=== PATIENT | female | born 1965 | race Caucasian/White ===

== ENCOUNTER → 2021-08-16 | Outpatient (CLI) | payer MEDICARE ==
[~2021-08-16] MED LIST: CARB200T PO; CARV3.1210 PO; INSU100C4 SQ; INSU100I27 SQ; LEVE10007 PO; LEVE500T56 PO; LEVO25TA4 PO; LISI10TA16 PO; LISI2.5T12 PO; LORA2TAB PO; PANT40TA77 PO; PREG100C PO; PREG50CA91 PO; SIMV10TA15 PO; ZOLP12.56 PO; ZOLP5TAB PO
== END ==
LOC: SPEC 16:17
PROVIDERS: ATTEND Podiatrist Foot & Ankle Surgery
DX: L03.031 Cellulitis of right toe (principal)
CPT/HCPCS: 87075; 87186

== ENCOUNTER 2021-08-21 15:53 | Inpatient (IN) | payer MEDICARE ==
[~2021-08-21] VITALS: Ht 160 cm; Wt 118.4 kg
--- NOTE | 2021-08-21 17:56 | PHYS DOC ---
Past Medical History Past Medical History: Diabetes-Type II, Hypertension Additional Past Medical Histor: vegus nerve stimulator, epistaxis Past Surgical History: No Surgical History General Adult EDM: Chief Complaint: TOE PROBLEM HPI: HPI: Patient is a 56 year old female who presents with concern for possible amputation of a toe on her right foot after a call from her is technician. Patient is a poor historian. She states that she was seen last week by her is technician, who informed her she has an infection on her right toe that necessitates amputation. Patient was taking Bactrim, but states that she was supposed to start taking a new antibiotic here in the hospital. She is unsure if wound cultures were performed or not at her visit last week. Patient denies fever, chills, generalized weakness, foot pain. Review of Systems: Review of Systems: Constitutional: Denies fever, chills or generalized weakness Eyes: Denies change in visual acuity, visual field deficits or discharge HENT: Denies ear pain, nasal congestion or sore throat Respiratory: Denies cough or shortness of breath Cardiovascular: Denies chest pain, palpitations or edema GI: Denies abdominal pain, nausea, vomiting, bloody stools or diarrhea : Denies dysuria or hematuria Musculoskeletal: See HPI Integument: See HPI Neurologic: Denies headache, focal weakness or sensory changes Heart Score: C/O Chest Pain: No Current Medications: Current Medications Medications (Trade) Dose Ordered Sig/Emery Start Time Stop Time Status Last Admin Dose Admin Ringer's Solution 1,000 ml @ 1,000 mls/hr 1X ONCE 08/21/21 18:00 08/21/21 18:59 Vancomycin HCl (Vanco Per Pharmacy) 1 each 1X PRN 08/21/21 18:00 UNV Allergies: Allergies: Allergies Coded Allergies Type Severity Reaction Last Updated Verified escitalopram Allergy Intermediate 06/06/15 Yes etodolac Allergy Intermediate 06/06/15 Yes glyburide Allergy Intermediate 06/06/15 Yes metformin Allergy Intermediate 06/06/15 Yes sitagliptin Allergy Intermediate 06/06/15 Yes Physical Exam: PE: Constitutional: Obese, no acute distress, non-toxic appearance. HENT: Normocephalic, atraumatic, bilateral external ears normal, nose normal. Eyes: EOMI, conjunctiva normal, no discharge. Neck: Normal range of motion, no stridor. Skin: Cellulitis of the right lower extremity extending to the distal lower leg. Skin otherwise warm, dry. Extremities: No cyanosis, no clubbing, ROM intact. There is a an oozing wound noted to the right foot that is currently wrapped in gauze and in a postop shoe. Neurologic: Alert and oriented x4, steady and upright gait, no focal deficits noted. Current Patient Data: Labs: Laboratory Tests Test 08/21/21 18:27 White Blood Count 5.9 x10^3/uL (4.0-11.0) Red Blood Count 3.86 x10^6/uL (3.50-5.40) Hemoglobin 13.3 g/dL (12.0-15.5) Hematocrit 38.6 % (36.0-47.0) Mean Corpuscular Volume 100 fL (79-100) Mean Corpuscular Hemoglobin 34 pg (25-35) Mean Corpuscular Hemoglobin Concent 34 g/dL (31-37) Red Cell Distribution Width 12.9 % (11.5-14.5) Platelet Count 213 x10^3/uL (140-400) Neutrophils (%) (Auto) 66 % (31-73) Lymphocytes (%) (Auto) 23 % (24-48) Monocytes (%) (Auto) 7 % (0-9) Eosinophils (%) (Auto) 2 % (0-3) Basophils (%) (Auto) 1 % (0-3) Neutrophils # (Auto) 3.9 x10^3/uL (1.8-7.7) Lymphocytes # (Auto) 1.4 x10^3/uL (1.0-4.8) Monocytes # (Auto) 0.4 x10^3/uL (0.0-1.1) Eosinophils # (Auto) 0.1 x10^3/uL (0.0-0.7) Basophils # (Auto) 0.1 x10^3/uL (0.0-0.2) Sodium Level 133 mmol/L (136-145) Potassium Level 4.6 mmol/L (3.5-5.1) Chloride Level 97 mmol/L (98-107) Carbon Dioxide Level 27 mmol/L (21-32) Anion Gap 9 (6-14) Blood Urea Nitrogen 12 mg/dL (7-20) Creatinine 0.7 mg/dL (0.6-1.0) Estimated GFR (Cockcroft-Gault) 87.2 BUN/Creatinine Ratio 17 (6-20) Glucose Level 333 mg/dL (70-99) Calcium Level 8.7 mg/dL (8.5-10.1) Magnesium Level 2.1 mg/dL (1.8-2.4) Total Bilirubin 0.2 mg/dL (0.2-1.0) Aspartate Amino Transf (AST/SGOT) 30 U/L (15-37) Alanine Aminotransferase (ALT/SGPT) 30 U/L (14-59) Alkaline Phosphatase 93 U/L (46-116) Total Protein 8.4 g/dL (6.4-8.2) Albumin 2.8 g/dL (3.4-5.0) Albumin/Globulin Ratio 0.5 (1.0-1.7) SARS-CoV-2 Antigen (Rapid) Negative (NEGATIVE) Vital Signs: Vital Signs Date Time Temp Pulse Resp B/P (MAP) Pulse Ox O2 Delivery O2 Flow Rate FiO2 08/21/21 20:35 98.0 70 20 162/79 (106) 96 Room Air 98.0 08/21/21 18:05 94 18 131/66 (87) 96 Room Air 08/21/21 17:35 92 18 128/71 (90) 96 Room Air 08/21/21 17:04 96 18 144/67 (92) 96 Room Air 08/21/21 16:30 98.4 107 18 176/83 (114) 94 Room Air 98.4 Date Time Temp Pulse Resp B/P (MAP) Pulse Ox O2 Delivery O2 Flow Rate FiO2 08/21/21 16:30 98.4 107 18 176/83 (114) 94 Room Air 98.4 EKG: EKG: [] Course & Med Decision Making: Course & Med Decision Making Pertinent Labs and Imaging studies reviewed. (See chart for details) I placed a call to Viviana Ramirez.P.M., who advised the patient to present to the ER. She states that about 1 month ago, patient presented with cellulitis to the right foot. She was instructed to follow-up in 1 week after taking Bactrim, but missed her appointment. Patient return to the clinic last week and was found to have osteomyelitis to the distal phalanx on x-ray. Patient was given a new antibiotic and instructed to have labs drawn, neither of which the patient follow through with. Wound culture came back for MSSA and E. coli. Dr. Bailey called the patient today and advised that she present to the emergency department secondary to noncompliance and poor follow-up. Dr. Bailey does not wish the patient to have any further compromise of the foot. Dr. Bailey requests blood cultures and admission so that she can further evaluate and surgically treat the infection on an inpatient basis, as the patient has failed outpatient management. Dr. Gasca gladlcoy accepts patient for admission. Directly after COVID swab, which is necessary prior to being in the OR here [facility], patient began to have a nosebleed. Direct pressure and Afrin were applied by NICK Martins. Patient was hemodynamically stable at time of transfer to the floor. Missy Disclaimer: Dragvaleri Disclaimer: This electronic medical record was generated, in whole or in part, using a voice recognition dictation system. Departure Departure Impression: Primary Impression: Osteomyelitis of right foot Qualified Codes: M86.271 - Subacute osteomyelitis, right ankle and foot Additional Impression: Anterior epistaxis Disposition: ADMITTED INPATIENT Admitting Physician: MARKELL Ngo) Condition: GUARDED Referrals: NO PCP (PCP) KESHA HILL Aug 21, 2021 17:56
[2021-08-21] MEDS ORDERED: VANCOMYCIN PER PHARMACY MC PRN (18:00)
[2021-08-21] MEDS ORDERED: IV RINGERS,LACTATED 1000ML 1,000 ML IV ONE (18:00)
[2021-08-21] MEDS ORDERED: VANCOMYCIN 2 GM in IV NORMAL SALINE 500ML BAG 500 ML IV ONE (18:30)
[2021-08-21] MEDS ORDERED: OXYMETAZOLINE 0.05% NASAL SPRAY 30ML BOTTLE. NS ONE (18:45)
--- NOTE | 2021-08-21 19:03 | PDOC1 ---
History and Physical Date of Admission Date of Admission DATE: 08/21/21 TIME: 19:03 Identification/Chief Complaint Chief Complaint Right foot pain, infection Source Source: Patient History of Present Illness History of Present Illness Ms Truong is a 56yo female with PMHx HTN, HLD, DM2, seizure disorder who comes to ED accompanied by her significant other c/o worsening pain, swelling of her right 3rd toe. She was sent to ED by her sports coordinator due to outpatient radiographic imaging concerning for osteomyelitis of the right third toe distal phalanx and per ED staff it was communicated a positive MSSA wound culture as well. Patient seen bedside notes she has been getting nail care through podiatry and has been fighting an infection for over a month now. Failed outpatient antibiotics. She notes a history of diabetes on Levemir 70 units nightly and NovoLog 65 units du ring the day and has a seizure disorder, reports she sees Dr. Parker and is on Keppra zonisamide and carbamazepine. Her current concerns are some epistaxis after COVID-19 nasal swab and local pressure and oxymetazoline nasal spray have been applied with improvement bedside. Her other concerns are lorazepam Ambien 12.5 mg and cyclobenzaprine as well as amitriptyline be continued while she is hospitalized due to concerns for insomnia and history of headaches as well. No labs available for review. Cultures pending. Past Medical History Cardiovascular: Hyperlipidemia CENTRAL NERVOUS SYSTEM: Migraine, Periperal neuropathy, Seizure Endocrine: Diabetes Past Surgical History Past Surgical History: Other (vagal nerve stimulator) Family History Family History: Diabetes, High Cholestrol Social History Smoke: No ALCOHOL: none Drugs: None Current Medications Current Medications Current Medications Ringer's Solution 1,000 ml @ 1,000 mls/hr 1X ONCE IV ; Start 08/21/21 at 18:00; Stop 08/21/21 at 18:59; Status DC Vancomycin HCl (Vanco Per Pharmacy) 1 each 1X PRN MC SEE COMMENTS; Start 08/21/21 at 18:00 Vancomycin HCl 2 gm/Sodium Chloride 500 ml @ 250 mls/hr 1X ONCE IV ; Start 08/21/21 at 18:30; Stop 08/21/21 at 20:29 Oxymetazoline HCl (Afrin) 2 spray 1X ONCE NS ; Start 08/21/21 at 18:45; Stop 08/21/21 at 18:46; Status DC Active Scripts Active Reported Simvastatin 10 Mg Tablet 10 Mg PO HS Lisinopril 10 Mg Tablet 10 Mg PO DAILY Levothyroxine Sodium 25 Mcg Tablet 25 Mcg PO DAILYAC Pantoprazole Sodium 40 Mg Tablet.dr 40 Mg PO BID Tegretol (Carbamazepine) 200 Mg Tablet 400 Mg PO BID 30 Days Lorazepam 2 Mg Tablet 2 Mg PO TID Levemir Flextouch (Insulin Detemir) 100 Unit/1 Ml Insuln.pen 1 Unit SQ Levetiracetam 1,000 Mg Tablet 1,000 Mg PO BID Lyrica (Pregabalin) 100 Mg Capsule 1 Cap PO BID Zolpidem Tartrate Er (Zolpidem Tartrate) 12.5 Mg Tab.mphase 12.5 Mg PO PRN QHS PRN Novolog (Insulin Aspart) 100 Unit/1 Ml Cartridge 100 Unit SQ Allergies Allergies: Coded Allergies: escitalopram (Verified Allergy, Intermediate, 06/06/15) etodolac (Verified Allergy, Intermediate, 06/06/15) glyburide (Verified Allergy, Intermediate, 06/06/15) metformin (Verified Allergy, Intermediate, 06/06/15) sitagliptin (Verified Allergy, Intermediate, 06/06/15) ROS General: YES: Fatigue, Malaise; No: Chills, Night Sweats, Appetite, Other PSYCHOLOGICAL ROS: YES: Anxiety, Memory difficulties, Sleep disturbances; No: Behavioral Disorder, Concentration difficultie, Decreased libido, Depression, Disorientation, Hallucinations, Hostility, Irritablity, Mood Swings, Obsessive thoughts, Physical abuse, Sexual abuse, Suicidal ideation, Other Eyes: No Blurry vision, No Decreased vision, No Double vision, No Dry eyes, No Excessive tearing, No Eye Pain, No Itchy Eyes, No Loss of vision, No Photophobia, No Scotomata, No Uses contacts, No Uses glasses, No Other HEENT: YES: Epistaxis; No: Heacaches, Visual Changes, Hearing change, Nasal congestion, Nasal discharge, Oral lesions, Sinus pain, Sore Throat, Sneezing, Snoring, Tinnitus, Vertigo, Vocal changes, Other ALLERGY AND IMMUNOLOGY: No: Hives, Insect Bite Sensitivity, Itchy/Watery Eyes, Nasal Congestion, Post Nasal Drip, Seasonal Allergies, Other Hematological and Lymphatic: No: Bleeding Problems, Blood Clots, Blood Transfusions, Brusing, Night Sweats, Pallor, Swollen Lymph Nodes, Other ENDOCRINE: No: Breast Changes, Galactorrhea, Hair Pattern Changes, Hot Flashes, Malaise/lethargy, Mood Swings, Palpitations, Polydipsia/polyuria, Skin Changes, Temperature Intolerance, Unexpected Weight Changes, Other Breast: No New/Changing Breast Lumps, No Nipple changes, No Nipple discharge, No Other Respiratory: No: Cough, Hemoptysis, Orthopnea, Pleuritic Pain, Shortness of breath, SOB with excertion, Sputum Changes, Stridor, Tachypnea, Wheezing, Other Cardiovascular: No Chest Pain, No Palpitations, No Orthopnea, No Paroxysmal Noc. Dyspnea, No Edema, No Lt Headedness, No Other Gastrointestinal: No Nausea, No Vomiting, No Abdominal Pain, No Diarrhea, No Constipation, No Melena, No Hematochezia, No Other Genitourinary: No Dysuria, No Frequency, No Incontinence, No Hematuria, No Retention, No Discharge, No Urgency, No Pain, No Flank Pain, No Other, No , No , No , No , No , No , No Musculoskeletal: Yes Gait Disturbance, Yes Joint Pain; No Joint Stiffness, No Joint Swelling, No Muscle Pain, No Muscular Weakness, No Pain In:, No Swelling In:, No Other Neurological: No Behavorial Changes, No Bowel/Bladder ControlChng, No Confusion, No Dizziness, No Gait Disturbance, No Headaches, No Impaired Coord/balance, No Memory Loss, No Numbness/Tingling, No Seizures, No Speech Problems, No Tremors, No Visual Changes, No Weakness, No Other Skin: Yes Rash, Yes Skin Lesion Changes Physical Exam General: Alert, Oriented X3, Cooperative, mild distress HEENT: Other (Epistaxis, right > left nares, resolved in ED) Lungs: Clear to auscultation, Normal air movement Heart: S1S2, RRR, no thrills, no rubs, no gallops, no murmurs Abdomen: Normal bowel sounds, Soft, No tenderness, No hepatosplenomegaly, No masses Extremities: No clubbing, No cyanosis, No edema, Normal pulses, Other (Right middle toe swollen) Skin: No rashes, No breakdown, No significant lesion, Other (Right third toe red discolored with eschar on dorsum) Neuro: Normal speech, Strength at 5/5 X4 ext, Normal tone, Cranial nerves 3-12 NL, Reflexes 2+ Psych/Mental Status: Mental status NL, Mood NL Vitals Vitals Vital Signs Date Time Temp Pulse Resp B/P (MAP) Pulse Ox O2 Delivery O2 Flow Rate FiO2 08/21/21 16:30 98.4 107 18 176/83 (114) 94 Room Air 98.4 VTE Prophylaxis Ordered VTE Prophylaxis Devices: No VTE Pharmacological Prophylaxi: Yes Assessment/Plan Assessment/Plan Right 3rd toe cellulitis - will empirically cover with vancomycin, rocephin, consult ID given reported history of osteomyelitis Right 3rd toe osteomyelitis - per report. Will assess arterial vascular supply to ascertain adequate healing potential HTN - cont home meds HLD - cont simvastatin DM2 - intolerant of oral diabetic meds. Levemir 70 units nightly and NovoLog 65 units during the day Seizure disorder - she sees Dr. Parker and is on Keppra zonisamide and carbamazepine. Notes last seizure was 3 weeks ago Epistaxis - from nasal swab, local oxymetolazine and pressure resolved in ED Anxiety - on prn lorazepam, counseled on judicious use given history of seizure disorder Insomnia - on Ambien 12.5 mg, counseled on use and neurology follow up given seizure disorder history Headaches - she mentions migraine type, on cyclobenzaprine as well as amitriptyline FEN - ADA diet PPX - heparin FULL CODE Dispo - inpatient Justifications for Admission Other Justification ANDERSON SAMPSON MD Aug 21, 2021 19:03
[2021-08-21 19:15] LABS: BASO # 0.1 x10^3/uL (0.0-0.2); BASO % 1 % (0-3); EOS # 0.1 x10^3/uL (0.0-0.7); EOS % 2 % (0-3); HEMATOCRIT 38.6 % (36.0-47.0); HEMOGLOBIN 13.3 g/dL (12.0-15.5); LYMPH # 1.4 x10^3/uL (1.0-4.8); LYMPH % 23 % (24-48); MEAN CORPUSCULAR HEMOGLOBIN 34 pg (25-35); MEAN CORPUSCULAR HGB CONC 34 g/dL (31-37); MEAN CORPUSCULAR VOLUME 100 fL (79-100); MONO # 0.4 x10^3/uL (0.0-1.1); MONO % 7 % (0-9); NEUT # 3.9 x10^3/uL (1.8-7.7); NEUT % 66 % (31-73); PLATELET COUNT 213 x10^3/uL (140-400); RED BLOOD COUNT 3.86 x10^6/uL (3.50-5.40); RED CELL DISTRIBUTION WIDTH 12.9 % (11.5-14.5); WHITE BLOOD COUNT 5.9 x10^3/uL (4.0-11.0)
[2021-08-21 19:19] LABS: CALCIUM 8.7 mg/dL (8.5-10.1); CREATININE 0.7 mg/dL (0.6-1.0); GFR 87.2; POTASSIUM 4.6 mmol/L (3.5-5.1)
[2021-08-21 19:25] LABS: ALBUMIN 2.8 g/dL (3.4-5.0); ALBUMIN/GLOBULIN RATIO 0.5 (1.0-1.7); MAGNESIUM 2.1 mg/dL (1.8-2.4); TOTAL BILIRUBIN 0.2 mg/dL (0.2-1.0); TOTAL PROTEIN 8.4 g/dL (6.4-8.2)
[2021-08-21] MEDS ORDERED: fentaNYL PF VIAL 100 MCG/2 ML VIAL IVP PRN (19:30)
[2021-08-21] MEDS ORDERED: ACETAMINOPHEN 325 MG TABLET. PO PRN (19:30)
[2021-08-21] MEDS ORDERED: IV DEXTROSE 5% 250 ML BAG. IV PRN (19:30)
[2021-08-21] MEDS ORDERED: ONDANSETRON PF 4 MG/2 ML VIAL. IVP PRN (19:30)
[2021-08-21] MEDS ORDERED: DEXTROSE 50% 25 GM / 50ML DISP.SYRIN. IV PRN (19:30)
--- NOTE | 2021-08-21 20:30 | NUR ---
Admit to 422 from ED. Picture of right 3rd toe in chart.
[2021-08-21 20:35] VITALS: BP 162/79
[2021-08-21] MEDS: levETIRAcetam 500 MG TABLET PO SCH (21:30)
[2021-08-21] MEDS: carBAMazepine 200 MG TABLET PO SCH (21:30)
[2021-08-21] MEDS: SIMVASTATIN 10 MG TABLET PO SCH (21:30)
[2021-08-21] MEDS: INSULIN LISPRO 300 UNITS/3 ML VIAL. SQ SCH (22:30)
[2021-08-21] MEDS: INSULIN GLARGINE SYRINGE. SQ SCH (22:31)
[2021-08-21 23:00] VITALS: BP 140/82
--- NOTE | 2021-08-21 23:18 | NUR ---
Pharmacy Vancomycin Dosing Note S:Consulted to monitor and dose vancomycin started 08/21/21. O:ANGELA FORBES is a 56 year old F with Osteomyelitis . Height: 5 feet, 3 inches Weight: 118.5 kg [place] Body Weight: 52.40 Adjusted Body Weight: 78.84 Dosing Weight: Actual Other Antibiotics: LABS: Last BUN: 12 Last Creatinine: 0.7 Creatinine Clearance: 114 mL/min Last WBC: 5.9 Last Procalcitonin: Tmax (past 24 hours): Microbiology: I/O: Drug Levels: Last level: on at Last dose given 08/21/21 at 2100 Vancomycin Dosing: Loading Dose: 2000 mg x1 Dosing Weight: Actual Target Trough: 15-20 A: Based on: WT AND CRCL, MAX INITIAL DOSE P: 1. Begin Vancomycin 1500 mg IV q8h 2. Follow up Trough level on 08/22/21 at 2030 3. Pharmacy will continue to monitor, follow and adjust therapy as needed. AVILA STAFFORD RPH, [id number] Signed: 08/21/21 at 231 by AVILA STAFFORD RPH PHA
[2021-08-22 03:27] VITALS: BP 127/70
[2021-08-22] MEDS ORDERED: VANCOMYCIN 1.5 GM in IV NORMAL SALINE 500ML BAG 500 ML IV SCH (05:00)
--- NOTE | 2021-08-22 05:36 | RAD ---
Study: US DPLX ARTR EXTREM LOWER BILAT Indication: Osteomyelitis. Toe infection. Comparison: None. Technique/Findings: Duplex sonographic assessment of the bilateral lower extremity arteries with color flow and pulsed wa ve Doppler along with spectral waveform analysis. Combination of triphasic and biphasic waveforms throughout both lower extremities. No evidence for a flow-limiting stenosis based on peak systolic velocity values. Mildly increased peak systolic velocit y within the proximal left superficial femoral artery of 151 cm/s with a drop to 98 cm/s at the mid S FA without dampened waveforms distally. Right lower extremity: LINE MOVER: 108 cm/s DFA: 68 cm/s Proximal SFA: 105 cm/s Mid SFA: 106 cm/s Distal SFA: 106 cm/s Popliteal artery: 82 cm/s [employer] proximal: 95 cm/s PT distal: 57 cm/s Peroneal artery: 57 cm/s RADHA: 100 cm/s DPA: 63 cm/s Left lower extremity: LINE MOVER: 148 cm/s DFA: 68 cm/s Proximal SFA: 151 cm/s Mid SFA: 98 cm/s Distal SFA: 113 cm/s Popliteal artery: 62 cm/s [employer] proximal: 96 cm/s PT distal: 59 cm/s Peroneal artery: 58 cm/s RADHA: 49 cm/s DPA: 120 cm/s Impression: Peripheral vascular disease without evidence for a flow-limiting stenosis throughout either lower ext remity. Suspected mild stenosis at the proximal left superficial femoral artery. Eventual MARYELLEN could b e performed to better quantify the extent of PAD. Electronically signed by: JIMMY DUNN MD (08/22/2021 5:33 AM) [facility]
--- NOTE | 2021-08-22 05:57 | NUR ---
Patient refuses staff to check blood sugar, uses her own One Touch meter.
[2021-08-22 07:00] VITALS: BP_SYST 119; BP_SYST 126; BP_SYST 191; BP_DIAS 68; BP_DIAS 76
--- NOTE | 2021-08-22 07:39 | PDOC ---
[employer] PROGRESS NOTE Date of Service DOS: DATE: 08/22/21 TIME: 07:34 Chief Complaint Chief Complaint Right 3rd toe cellulitis - will empirically cover with vancomycin, rocephin, consult ID given reported history of osteomyelitis Right 3rd toe osteomyelitis - per report. Will assess arterial vascular supply to ascertain adequate healing potential HTN - cont home meds HLD - cont simvastatin DM2 - intolerant of oral diabetic meds. Levemir 70 units nightly and NovoLog 65 units during the day Seizure disorder - she sees Dr. Parker and is on Keppra zonisamide and carbamazepine. Notes last seizure was 3 weeks ago Epistaxis - from nasal swab, local oxymetolazine and pressure resolved in ED Anxiety - on prn lorazepam, counseled on judicious use given history of seizure disorder Insomnia - on Ambien 12.5 mg, counseled on use and neurology follow up given seizure disorder history Headaches - she mentions migraine type, on cyclobenzaprine as well as amitriptyline FEN - ADA diet PPX - heparin FULL CODE Dispo - inpatient History of Present Illness History of Present Illness Ms Truong is a 56yo female with PMHx HTN, HLD, DM2, seizure disorder who comes to ED accompanied by her significant other c/o worsening pain, swelling of her right 3rd toe. She was sent to ED by her vacuum drum drier operator due to outpatient radiographic imaging concerning for osteomyelitis of the right third toe distal phalanx and per ED staff it was communicated a positive MSSA wound culture as well. Patient seen bedside notes she has been getting nail care through podiatry and has been fighting an infection for over a month now. Failed outpatient antibiotics. She notes a history of diabetes on Levemir 70 units nightly and NovoLog 65 units during the day and has a seizure disorder, reports she sees Dr. Parker and is on Keppra zonisamide and carbamazepine. Her current concerns are some epistaxis after COVID-19 nasal swab and local pressure and oxymetazoline nasal spray have been applied with improvement bedside. Her other concerns are lorazepam Ambien 12.5 mg and cyclobenzaprine as well as amitriptyline be continued while she is hospitalized due to concerns for insomnia and history of headaches as well. 08/22: Labs with NA 133, glucose in upper 200s. Took some time to have her consent for glucose tested. Having some pain currently. Still aching. Arterial Doppler with no acute occlusive disease. Vitals/I&O Vitals/I&O: Vital Signs Date Time Temp Pulse Resp B/P (MAP) Pulse Ox O2 Delivery O2 Flow Rate FiO2 08/22/21 03:27 97.1 90 20 127/70 (89) 97 Room Air 97.1 I & O 08/21/21 08/21/21 08/22/21 15:00 23:00 07:00 Intake Total 600 ml Output Total 2 ml Balance -2 ml 600 ml Physical Exam General: Alert, Oriented X3, Cooperative, mild distress Abdomen: Normal bowel sounds, Soft, No tenderness, No hepatosplenomegaly, No masses Extremities: No clubbing, No cyanosis, No edema, Normal pulses, Other (Right m iddle toe swollen) Skin: No rashes, No breakdown, No significant lesion, Other (Right third toe red discolored with eschar on dorsum) Labs Labs: Laboratory Tests Test 08/21/21 18:27 White Blood Count 5.9 x10^3/uL (4.0-11.0) Red Blood Count 3.86 x10^6/uL (3.50-5.40) Hemoglobin 13.3 g/dL (12.0-15.5) Hematocrit 38.6 % (36.0-47.0) Mean Corpuscular Volume 100 fL (79-100) Mean Corpuscular Hemoglobin 34 pg (25-35) Mean Corpuscular Hemoglobin Concent 34 g/dL (31-37) Red Cell Distribution Width 12.9 % (11.5-14.5) Platelet Count 213 x10^3/uL (140-400) Neutrophils (%) (Auto) 66 % (31-73) Lymphocytes (%) (Auto) 23 % (24-48) Monocytes (%) (Auto) 7 % (0-9) Eosinophils (%) (Auto) 2 % (0-3) Basophils (%) (Auto) 1 % (0-3) Neutrophils # (Auto) 3.9 x10^3/uL (1.8-7.7) Lymphocytes # (Auto) 1.4 x10^3/uL (1.0-4.8) Monocytes # (Auto) 0.4 x10^3/uL (0.0-1.1) Eosinophils # (Auto) 0.1 x10^3/uL (0.0-0.7) Basophils # (Auto) 0.1 x10^3/uL (0.0-0.2) Sodium Level 133 mmol/L (136-145) Potassium Level 4.6 mmol/L (3.5-5.1) Chloride Level 97 mmol/L (98-107) Carbon Dioxide Level 27 mmol/L (21-32) Anion Gap 9 (6-14) Blood Urea Nitrogen 12 mg/dL (7-20) Creatinine 0.7 mg/dL (0.6-1.0) Estimated GFR (Cockcroft-Gault) 87.2 BUN/Creatinine Ratio 17 (6-20) Glucose Level 333 mg/dL (70-99) Calcium Level 8.7 mg/dL (8.5-10.1) Magnesium Level 2.1 mg/dL (1.8-2.4) Total Bilirubin 0.2 mg/dL (0.2-1.0) Aspartate Amino Transf (AST/SGOT) 30 U/L (15-37) Alanine Aminotransferase (ALT/SGPT) 30 U/L (14-59) Alkaline Phosphatase 93 U/L (46-116) Total Protein 8.4 g/dL (6.4-8.2) Albumin 2.8 g/dL (3.4-5.0) Albumin/Globulin Ratio 0.5 (1.0-1.7) SARS-CoV-2 Antigen (Rapid) Negative (NEGATIVE) Assessment and Plan Assessmemt and Plan Problems Medical Problems: (1) Anterior epistaxis Status: Acute (2) Osteomyelitis of right foot Status: Acute Comment Review of Relevant I have reviewed the following items sree (where applicable) has been applied. Medications: Current Medications Medications (Trade) Dose Ordered Sig/Emery Route PRN Reason Start Time Stop Time Status Last Admin Dose Admin Vancomycin HCl (Vanco Per Pharmacy) 1 each 1X PRN MC SEE COMMENTS 08/21/21 18:00 08/21/21 23:18 Vancomycin HCl 2 gm/Sodium Chloride 500 ml @ 250 mls/hr 1X ONCE IV 08/21/21 18:30 08/21/21 20:29 DC 08/21/21 21:04 Oxymetazoline HCl (Afrin) 2 spray 1X ONCE NS 08/21/21 18:45 08/21/21 18:46 DC 08/21/21 19:04 Insulin Glargine (Lantus Syringe) 70 unit QHS SQ 08/21/21 21:00 08/21/21 22:31 Insulin Human Lispro (HumaLOG) 0-9 UNITS TIDACHC SQ 08/21/21 21:00 08/21/21 22:30 Vancomycin HCl 1.5 gm/Sodium Chloride 500 ml @ 250 mls/hr Q8H IV 08/22/21 05:00 08/22/21 06:07 Justifications for Admission Other Justification ANDERSON SAMPSON MD Aug 22, 2021 07:39
[2021-08-22 08:00] LABS: BASO # 0.1 x10^3/uL (0.0-0.2); BASO % 1 % (0-3); EOS # 0.2 x10^3/uL (0.0-0.7); EOS % 3 % (0-3); HEMATOCRIT 36.3 % (36.0-47.0); HEMOGLOBIN 12.4 g/dL (12.0-15.5); LYMPH # 1.8 x10^3/uL (1.0-4.8); LYMPH % 31 % (24-48); MEAN CORPUSCULAR HEMOGLOBIN 34 pg (25-35); MEAN CORPUSCULAR HGB CONC 34 g/dL (31-37); MEAN CORPUSCULAR VOLUME 100 fL (79-100); MONO # 0.4 x10^3/uL (0.0-1.1); MONO % 7 % (0-9); NEUT # 3.3 x10^3/uL (1.8-7.7); NEUT % 58 % (31-73); PLATELET COUNT 198 x10^3/uL (140-400); RED BLOOD COUNT 3.62 x10^6/uL (3.50-5.40); RED CELL DISTRIBUTION WIDTH 13.1 % (11.5-14.5); WHITE BLOOD COUNT 5.8 x10^3/uL (4.0-11.0)
[2021-08-22 08:32] LABS: ALBUMIN 2.4 g/dL (3.4-5.0); ALBUMIN/GLOBULIN RATIO 0.5 (1.0-1.7); CREATININE 0.7 mg/dL (0.6-1.0); GFR 87.2; POTASSIUM 4.1 mmol/L (3.5-5.1); TOTAL BILIRUBIN 0.2 mg/dL (0.2-1.0); TOTAL PROTEIN 7.3 g/dL (6.4-8.2)
--- NOTE | 2021-08-22 09:00 | PDOC2 ---
CONSULT Date of Consult Date of Consult DATE: 08/22/21 TIME: 08:48 Reason for Consult Reason for Consult: DM foot infection Referring Physician Referring Physician: Lorraine Identification/Chief Complaint Chief Complaint infected right 3rd toe Source Source: Patient History of Present Illness Reason for Visit: 56 year old female with past medical history of DM and peripheral neuropathy was seen in my office 1 month ago for ulceration to distal tip of 3rd toe. She missed her follow up appointment 1 week later due to migraine headache and returned 3.5 weeks later on 08/16 with noted cellulitis and xray changes significant for osteomyelitis distal phalanx. Ordered labs, MRI, and arterial doppler outpatient however patient failed to get these drawn and performed. She was contacted for follow up on labs and had a non working number and set her phones to do not disturb. She then responded via email and called us yesterday to let us know of continued cellulitis. Recommended she come to the emergency room for admission for IV antibiotics. Wound culture from 08/16 shows MSSA and Ecoli. She notes nausea, but denies vomitting, fever, chills Past Medical History Cardiovascular: Hyperlipidemia CENTRAL NERVOUS SYSTEM: Migraine, Periperal neuropathy, Seizure Endocrine: Diabetes Past Surgical History Past Surgical History: Other (vagal nerve stimulator) Family History Family History: Diabetes, High Cholestrol Social History No ALCOHOL: none Drugs: None Current Problem List Problem List Problems Medical Problems: (1) Anterior epistaxis Status: Acute (2) Osteomyelitis of right foot Status: Acute Current Medications Current Medications Current Medications Ringer's Solution 1,000 ml @ 1,000 mls/hr 1X ONCE IV ; Start 08/21/21 at 18:00; Stop 08/21/21 at 18:59; Status DC Vancomycin HCl (Vanco Per Pharmacy) 1 each 1X PRN MC SEE COMMENTS Last administered on 08/21/21at 23:18; Start 08/21/21 at 18:00 Vancomycin HCl 2 gm/Sodium Chloride 500 ml @ 250 mls/hr 1X ONCE IV Last administered on 08/21/21at 21:04; Start 08/21/21 at 18:30; Stop 08/21/21 at 20:2 9; Status DC Oxymetazoline HCl (Afrin) 2 spray 1X ONCE NS Last administered on 08/21/21at 19:04; Start 08/21/21 at 18:45; Stop 08/21/21 at 18:46; Status DC Ondansetron HCl (Zofran) 4 mg PRN Q4HRS PRN IVP NAUSEA/VOMITING; Start 08/21/21 at 19:30 Fentanyl Citrate (Fentanyl 2ml Vial) 25 mcg PRN Q3HRS PRN IVP SEVERE PAIN 7-10; Start 08/21/21 at 19:30 Acetaminophen (Tylenol) 650 mg PRN Q6HRS PRN PO MILD PAIN / TEMP > 100.3'F; Start 08/21/21 at 19:30 Acetaminophen/ Hydrocodone Bitart (Lortab 5/325) 1 tab PRN Q6HRS PRN PO PAIN; Start 08/21/21 at 19:30 Insulin Glargine (Lantus Syringe) 70 unit QHS SQ Last administered on 08/21/21at 22:31; Start 08/21/21 at 21:00 Insulin Human Lispro (HumaLOG) 0-9 UNITS TIDACHC SQ Last administered on 08/21/21at 22:30; Start 08/21/21 at 21:00 Dextrose (Dextrose 50%-Water Syringe) 12.5 gm PRN Q15MIN PRN IV SEE COMMENTS; Start 08/21/21 at 19:30 Dextrose (Iv Dextrose 5%) 250 ml PRN Q15MIN PRN IV SEE COMMENTS; Start 08/21/21 at 19:30 Carbamazepine (TEGretol) 400 mg BID PO ; Start 08/21/21 at 21:30 Pantoprazole Sodium (Protonix) 40 mg BIDAC PO ; Start 08/22/21 at 07:30 Simvastatin (Zocor) 10 mg HS PO ; Start 08/21/21 at 21:30 Levetiracetam (Keppra) 1,000 mg BID PO ; Start 08/21/21 at 21:30 Lorazepam (Ativan) 2 mg PRN TID PRN PO ANXIETY / AGITATION; Start 08/21/21 at 21:15 Zolpidem Tartrate (Ambien) 5 mg PRN QHS PRN PO INSOMNIA, MAY REPEAT X1; Start 08/21/21 at 21:15 Vancomycin HCl 1.5 gm/Sodium Chloride 500 ml @ 250 mls/hr Q8H IV Last administered on 08/22/21at 06:07; Start 08/22/21 at 05:00 Vancomycin HCl (Vancomycin Trough Level) 1 each 1X ONCE MC ; Start 08/22/21 at 20:30; Stop 08/22/21 at 20:31 Active Scripts Active Reported Simvastatin 10 Mg Tablet 10 Mg PO HS Lisinopril 10 Mg Tablet 10 Mg PO DAILY Levothyroxine Sodium 25 Mcg Tablet 25 Mcg PO DAILYAC Pantoprazole Sodium 40 Mg Tablet.dr 40 Mg PO BID Tegretol (Carbamazepine) 200 Mg Tablet 400 Mg PO BID 30 Days Lorazepam 2 Mg Tablet 2 Mg PO TID Levemir Flextouch (Insulin Detemir) 100 Unit/1 Ml Insuln.pen 1 Unit SQ Levetiracetam 1,000 Mg Tablet 1,000 Mg PO BID Lyrica (Pregabalin) 100 Mg Capsule 1 Cap PO BID Zolpidem Tartrate Er (Zolpidem Tartrate) 12.5 Mg Tab.mphase 12.5 Mg PO PRN QHS PRN Novolog (Insulin Aspart) 100 Unit/1 Ml Cartridge 100 Unit SQ Allergies Allergies: Coded Allergies: escitalopram (Verified Allergy, Intermediate, 06/06/15) etodolac (Verified Allergy, Intermediate, 06/06/15) glyburide (Verified Allergy, Intermediate, 06/06/15) metformin (Verified Allergy, Intermediate, 06/06/15) sitagliptin (Verified Allergy, Intermediate, 06/06/15) ROS General: YES: Malaise PSYCHOLOGICAL ROS: No: Anxiety, Behavioral Disorder, Concentration difficultie, Decreased libido, Depression, Disorientation, Hallucinations, Hostility, Irritablity, Memory difficulties, Mood Swings, Obsessive thoughts, Physical abuse, Sexual abuse, Sleep disturbances, Suicidal ideation, Other Eyes: No Blurry vision, No Decreased vision, No Double vision, No Dry eyes, No Excessive tearing, No Eye Pain, No Itchy Eyes, No Loss of vision, No Photophobia, No Scotomata, No Uses contacts, No Uses glasses, No Other HEENT: No: Heacaches, Visual Changes, Hearing change, Nasal congestion, Nasal discharge, Oral lesions, Sinus pain, Sore Throat, Epistaxis, Sneezing, Snoring, Tinnitus, Vertigo, Vocal changes, Other ALLERGY AND IMMUNOLOGY: No: Hives, Insect Bite Sensitivity, Itchy/Watery Eyes, Nasal Congestion, Post Nasal Drip, Seasonal Allergies, Other Hematological and Lymphatic: No: Bleeding Problems, Blood Clots, Blood Transfusions, Brusing, Night Sweats, Pallor, Swollen Lymph Nodes, Other ENDOCRINE: No: Breast Changes, Galactorrhea, Hair Pattern Changes, Hot Flashes, Malaise/lethargy, Mood Swings, Palpitations, Polydipsia/polyuria, Skin Changes, Temperature Intolerance, Unexpected Weight Changes, Other Breast: No New/Changing Breast Lumps, No Nipple changes, No Nipple discharge, No Other Respiratory: No: Cough, Hemoptysis, Orthopnea, Pleuritic Pain, Shortness of breath, SOB with excertion, Sputum Changes, Stridor, Tachypnea, Wheezing, Other Cardiovascular: No Chest Pain, No Palpitations, No Orthopnea, No Paroxysmal Noc. Dyspnea, No Edema, No Lt Headedness, No Other Gastrointestinal: Yes Nausea; No Vomiting, No Abdominal Pain, No Diarrhea, No Constipation, No Melena, No Hematochezia, No Other Genitourinary: No Dysuria, No Frequency, No Incontinence, No Hematuria, No Retention, No Discharge, No Urgency, No Pain, No Flank Pain, No Other, No , No , No , No , No , No , No Musculoskeletal: No Gait Disturbance, No Joint Pain, No Joint Stiffness, No Joint Swelling, No Muscle Pain, No Muscular Weakness, No Pain In:, No Swelling In:, No Other Neurological: No Behavorial Changes, No Bowel/Bladder ControlChng, No Confusion, No Dizziness, No Gait Disturbance, No Headaches, No Impaired Coord /balance, No Memory Loss, No Numbness/Tingling, No Seizures, No Speech Problems, No Tremors, No Visual Changes, No Weakness, No Other Skin: No Dry Skin, No Eczema, No Hair Changes, No Lumps, No Mole Changes, No Mottling, No Nail Changes, No Pruritus, No Rash, No Skin Lesion Changes, No Other, No Acne Physical Exam Physical Exam lower extremity exam: skin is warm, xerotic, atrophic. Note full thickness ulceration to distal tip of 3rd toe with active pustular drainage expressed. +Cellulitis extends to midfoot. +calor. No ischemic changes noted. Wound to tip of toe measures [id number] +sinus tract through the toe. DP 1/4. PT weakly palpable 1/4. CFT is 3 seconds to digits Muscle strength is 5/5 General: Alert, Oriented X3, mild distress Vitals VITALS Vital Signs Date Time Temp Pulse Resp B/P (MAP) Pulse Ox O2 Delivery O2 Flow Rate FiO2 08/22/21 07:00 98.4 69 18 191/68 (109) 94 Room Air 98.4 Labs Labs Laboratory Tests Test 08/21/21 18:27 08/22/21 07:30 08/22/21 07:52 White Blood Count 5.9 x10^3/uL (4.0-11.0) 5.8 x10^3/uL (4.0-11.0) Red Blood Count 3.86 x10^6/uL (3.50-5.40) 3.62 x10^6/uL (3.50-5.40) Hemoglobin 13.3 g/dL (12.0-15.5) 12.4 g/dL (12.0-15.5) Hematocrit 38.6 % (36.0-47.0) 36.3 % (36.0-47.0) Mean Corpuscular Volume 100 fL (79-100) 100 fL (79-100) Mean Corpuscular Hemoglobin 34 pg (25-35) 34 pg (25-35) Mean Corpuscular Hemoglobin Concent 34 g/dL (31-37) 34 g/dL (31-37) Red Cell Distribution Width 12.9 % (11.5-14.5) 13.1 % (11.5-14.5) Platelet Count 213 x10^3/uL (140-400) 198 x10^3/uL (140-400) Neutrophils (%) (Auto) 66 % (31-73) 58 % (31-73) Lymphocytes (%) (Auto) 23 % (24-48) 31 % (24-48) Monocytes (%) (Auto) 7 % (0-9) 7 % (0-9) Eosinophils (%) (Auto) 2 % (0-3) 3 % (0-3) Basophils (%) (Auto) 1 % (0-3) 1 % (0-3) Neutrophils # (Auto) 3.9 x10^3/uL (1.8-7.7) 3.3 x10^3/uL (1.8-7.7) Lymphocytes # (Auto) 1.4 x10^3/uL (1.0-4.8) 1.8 x10^3/uL (1.0-4.8) Monocytes # (Auto) 0.4 x10^3/uL (0.0-1.1) 0.4 x10^3/uL (0.0-1.1) Eosinophils # (Auto) 0.1 x10^3/uL (0.0-0.7) 0.2 x10^3/uL (0.0-0.7) Basophils # (Auto) 0.1 x10^3/uL (0.0-0.2) 0.1 x10^3/uL (0.0-0.2) Sodium Level 133 mmol/L (136-145) 136 mmol/L (136-145) Potassium Level 4.6 mmol/L (3.5-5.1) 4.1 mmol/L (3.5-5.1) Chloride Level 97 mmol/L (98-107) 101 mmol/L (98-107) Carbon Dioxide Level 27 mmol/L (21-32) 25 mmol/L (21-32) Anion Gap 9 (6-14) 10 (6-14) Blood Urea Nitrogen 12 mg/dL (7-20) 10 mg/dL (7-20) Creatinine 0.7 mg/dL (0.6-1.0) 0.7 mg/dL (0.6-1.0) Estimated GFR (Cockcroft-Gault) 87.2 87.2 BUN/Creatinine Ratio 17 (6-20) 14 (6-20) Glucose Level 333 mg/dL (70-99) 258 mg/dL (70-99) Calcium Level 8.7 mg/dL (8.5-10.1) 8.0 mg/dL (8.5-10.1) Magnesium Level 2.1 mg/dL (1.8-2.4) Total Bilirubin 0.2 mg/dL (0.2-1.0) 0.2 mg/dL (0.2-1.0) Aspartate Amino Transf (AST/SGOT) 30 U/L (15-37) 24 U/L (15-37) Alanine Aminotransferase (ALT/SGPT) 30 U/L (14-59) 31 U/L (14-59) Alkaline Phosphatase 93 U/L (46-116) 76 U/L (46-116) Total Protein 8.4 g/dL (6.4-8.2) 7.3 g/dL (6.4-8.2) Albumin 2.8 g/dL (3.4-5.0) 2.4 g/dL (3.4-5.0) Albumin/Globulin Ratio 0.5 (1.0-1.7) 0.5 (1.0-1.7) SARS-CoV-2 Antigen (Rapid) Negative (NEGATIVE) Glucose (Fingerstick) 246 mg/dL (70-99) Laboratory Tests Test 08/21/21 18:27 08/22/21 07:30 08/22/21 07:52 White Blood Count 5.9 x10^3/uL (4.0-11.0) 5.8 x10^3/uL (4.0-11.0) Red Blood Count 3.86 x10^6/uL (3.50-5.40) 3.62 x10^6/uL (3.50-5.40) Hemoglobin 13.3 g/dL (12.0-15.5) 12.4 g/dL (12.0-15.5) Hematocrit 38.6 % (36.0-47.0) 36.3 % (36.0-47.0) Mean Corpuscular Volume 100 fL (79-100) 100 fL (79-100) Mean Corpuscular Hemoglobin 34 pg (25-35) 34 pg (25-35) Mean Corpuscular Hemoglobin Concent 34 g/dL (31-37) 34 g/dL (31-37) Red Cell Distribution Width 12.9 % (11.5-14.5) 13.1 % (11.5-14.5) Platelet Count 213 x10^3/uL (140-400) 198 x10^3/uL (140-400) Neutrophils (%) (Auto) 66 % (31-73) 58 % (31-73) Lymphocytes (%) (Auto) 23 % (24-48) 31 % (24-48) Monocytes (%) (Auto) 7 % (0-9) 7 % (0-9) Eosinophils (%) (Auto) 2 % (0-3) 3 % (0-3) Basophils (%) (Auto) 1 % (0-3) 1 % (0-3) Neutrophils # (Auto) 3.9 x10^3/uL (1.8-7.7) 3.3 x10^3/uL (1.8-7.7) Lymphocytes # (Auto) 1.4 x10^3/uL (1.0-4.8) 1.8 x10^3/uL (1.0-4.8) Monocytes # (Auto) 0.4 x10^3/uL (0.0-1.1) 0.4 x10^3/uL (0.0-1.1) Eosinophils # (Auto) 0.1 x10^3/uL (0.0-0.7) 0.2 x10^3/uL (0.0-0.7) Basophils # (Auto) 0.1 x10^3/uL (0.0-0.2) 0.1 x10^3/uL (0.0-0.2) Sodium Level 133 mmol/L (136-145) 136 mmol/L (136-145) Potassium Level 4.6 mmol/L (3.5-5.1) 4.1 mmol/L (3.5-5.1) Chloride Level 97 mmol/L (98-107) 101 mmol/L (98-107) Carbon Dioxide Level 27 mmol/L (21-32) 25 mmol/L (21-32) Anion Gap 9 (6-14) 10 (6-14) Blood Urea Nitrogen 12 mg/dL (7-20) 10 mg/dL (7-20) Creatinine 0.7 mg/dL (0.6-1.0) 0.7 mg/dL (0.6-1.0) Estimated GFR (Cockcroft-Gault) 87.2 87.2 BUN/Creatinine Ratio 17 (6-20) 14 (6-20) Glucose Level 333 mg/dL (70-99) 258 mg/dL (70-99) Calcium Level 8.7 mg/dL (8.5-10.1) 8.0 mg/dL (8.5-10.1) Magnesium Level 2.1 mg/dL (1.8-2.4) Total Bilirubin 0.2 mg/dL (0.2-1.0) 0.2 mg/dL (0.2-1.0) Aspartate Amino Transf (AST/SGOT) 30 U/L (15-37) 24 U/L (15-37) Alanine Aminotransferase (ALT/SGPT) 30 U/L (14-59) 31 U/L (14-59) Alkaline Phosphatase 93 U/L (46-116) 76 U/L (46-116) Total Protein 8.4 g/dL (6.4-8.2) 7.3 g/dL (6.4-8.2) Albumin 2.8 g/dL (3.4-5.0) 2.4 g/dL (3.4-5.0) Albumin/Globulin Ratio 0.5 (1.0-1.7) 0.5 (1.0-1.7) SARS-CoV-2 Antigen (Rapid) Negative (NEGATIVE) Glucose (Fingerstick) 246 mg/dL (70-99) Assessment/Plan Assessment/Plan 56 year old female with DM, peripheral neuropathy, osteomyelitis 3rd toe right, abscess 3rd toe, right, low albumen, history of non compliance -Arterial doppler shows peripheral arterial disease with no stenosis and biphasic/triphasic waveforms -Awaiting MRI right foot without contrast to determine level of amputation as well as to evaluate for abscess. -ID on consult. Wound culture MSSA, E-coli,awaiting further antibiotic recommendations -Plan for surgery 3rd toe versus partial 3rd ray amputation right foot -Consult to nutrition for Diabetic diet education and low albumen, consider supplements -Continue once a day local wound care betadine solution, gauze, kerlex. -Dispense surgical shoe right foot, -Elevate right lower extremity JENNIFER GALINDO DPM Aug 22, 2021 09:00
[2021-08-22] MEDS ORDERED: GABA600T7 PO (09:05)
[2021-08-22] MEDS ORDERED: LOSA-73 PO (09:05)
[2021-08-22] MEDS: carBAMazepine 200 MG TABLET PO SCH ×2 (09:11→20:16)
[2021-08-22] MEDS: PANTOPRAZOLE 40 MG TABLET.DR. PO SCH ×2 (09:14→16:34)
[2021-08-22] MEDS: levETIRAcetam 500 MG TABLET PO SCH ×2 (09:14→20:16)
[2021-08-22] MEDS: INSULIN LISPRO 300 UNITS/3 ML VIAL. SQ SCH ×6 (09:17→22:17)
[2021-08-22 11:00] VITALS: BP 126/76
[2021-08-22 15:00] VITALS: BP 155/72
[2021-08-22] MEDS: PIPERACILLIN/TAZOBACTAM 3.375 GM in IV NORMAL SALINE 50ML 50 ML IV SCH ×2 (15:01→20:15)
[2021-08-22 19:00] VITALS: BP 147/79
[2021-08-22] MEDS: LACTOBACILLUS RHAMNOSUS GG 1 CAPSULE. PO SCH (20:15)
[2021-08-22] MEDS: HYDROcodone/APAP 5/325MG 1 TAB TABLET PO PRN (20:16)
[2021-08-22] MEDS: SIMVASTATIN 10 MG TABLET PO SCH (20:16)
[2021-08-22] MEDS: INSULIN GLARGINE SYRINGE. SQ SCH (22:16)
[2021-08-22 23:00] VITALS: BP 146/82
--- NOTE | 2021-08-23 00:11 | CONS ---
DATE OF CONSULTATION: 08/22/2021 REQUESTING PHYSICIAN: Dr. Peters. REASON FOR CONSULTATION: Toe infection. HISTORY OF PRESENT ILLNESS: This is a 56-year-old female with history of diabetes, hypertension, seizure disorder, who has been having toe problem for a long period of time as the chart reports about a month or more. The patient is not able to provide any information. The patient is going to Podiatry and oral antibiotics have failed and the patient continues to not do what she was supposed to do and now she is here. The toe looks necrotic and chronically infected. X-ray outpatient somewhere shows osteomyelitis of the distal phalanx. The patient denies any fever. Denies any nausea, vomiting, or diarrhea. PAST MEDICAL HISTORY: Positive for diabetes mellitus, hypertension, hyperlipidemia, seizure disorder, hypothyroidism, psychiatric problem. SOCIAL HISTORY: Negative for smoking, alcohol, or illicit drug use. ALLERGIES: LISTED ALLERGIC TO MULTIPLE MEDICATIONS. MEDICATIONS: No antibiotics. Reviewed. CURRENT MEDICATIONS: Reviewed. The patient is only on vancomycin. REVIEW OF SYSTEMS: As in HPI. All other systems reviewed and are negative. PHYSICAL EXAMINATION: GENERAL: Alert, oriented female, not in distress. VITAL SIGNS: Stable. Afebrile. HEENT: NAD. NECK: Supple. No JVP, no lymphadenopathy. LUNGS: Clear. HEART: S1, S2, regular. ABDOMEN: Soft, nontender, no organomegaly. EXTREMITIES: No edema, cyanosis. SKIN: Unremarkable except right third toe appears chronically infected with sinus tract as well as necrotic skin. NEUROLOGIC: The patient is alert, awake, and appropriate. No focal neurologic deficit. LABORATORY DATA: White count is normal. BUN and creatinine are normal. Glucose is in 200s. MRI as I mentioned is pending. IMPRESSION: 1. Right third toe distal phalanx osteomyelitis. 2. Right third toe gangrene, necrotic changes on the toe of the skin also. 3. Diabetes mellitus. 4. Hypertension. 5. Seizure disorder. RECOMMENDATIONS: Discontinue vancomycin. Start Zosyn. Supportive care. MRI is pending. Probably the patient is going to need amputation of the part of the toe or whole of the toe. We will continue to follow. BENNIE/CB/JACI MCGEE: BENNIE/socorro TID: [id number]
--- NOTE | 2021-08-23 01:03 | NUR ---
Had spontaneous nose bleed. "I probably need to have it cauterized." States she gets them frequently and sees an ENT @ . We were able to stop it w/ direct pressure, gauze 'packing' and ice pack. Right 3rd toe dressed w/ Betadine swab, Telfa and Kerlex, toe is crusty brown and draining serous drainage. No odor. No pain. "I can't feel my toes."
[2021-08-23] MEDS: PANTOPRAZOLE 40 MG TABLET.DR. PO SCH ×2 (05:26→17:42)
[2021-08-23] MEDS: PIPERACILLIN/TAZOBACTAM 3.375 GM in IV NORMAL SALINE 50ML 50 ML IV SCH ×4 (05:27→17:42)
[2021-08-23] MEDS: HYDROcodone/APAP 5/325MG 1 TAB TABLET PO PRN ×2 (05:35→12:18)
[2021-08-23 07:30] VITALS: BP 169/87
[2021-08-23] MEDS: levETIRAcetam 500 MG TABLET PO SCH ×2 (08:25→21:00)
[2021-08-23] MEDS: carBAMazepine 200 MG TABLET PO SCH ×2 (08:25→21:00)
[2021-08-23] MEDS: LACTOBACILLUS RHAMNOSUS GG 1 CAPSULE. PO SCH ×2 (08:26→22:38)
[2021-08-23] MEDS: INSULIN LISPRO 300 UNITS/3 ML VIAL. SQ SCH ×7 (08:31→22:42)
[2021-08-23 11:00] VITALS: BP 141/87
--- NOTE | 2021-08-23 11:26 | RAD ---
EXAMINATION: MRI RIGHT FOOT WITHOUT IV CONTRAST CLINICAL HISTORY: Osteomyelitis right third toe. TECHNIQUE: Multiplanar multisequential images obtained through the forefoot without intravenous contr ast. COMPARISON: None FINDINGS: Prominent motion artifact limits evaluation. 5 x 7 mm ulcer along the lateral aspect of the distal third toe with diffuse skin thickening and subc utaneous edema in the third toe, nonspecific but can be seen with cellulitis in in the appropriate cl inical setting. Mass can't thickening and subcutaneous edema also present in the second and to lesser extent fourth toes and there is mild subcutaneous edema along the dorsal forefoot. No organized kacy ection to suggest an abscess. Osteomyelitis and likely extensive osseous destruction in the third distal and middle phalanges with poor mineralization of the phalanges other than the proximal middle phalanx. Mild edema in the third proximal phalanx without definitive evidence of confluent T1 hypointense marrow signal on limited edy luation, this is most consistent with reactive edema but cannot exclude early osteomyelitis. There is otherwise no evidence of suspicious marrow replacing process. No acute fracture. Fatty atrophy and edema in the intrinsic foot musculature, compatible with chronic neuropathic myopat hy. Flexor tendon to the third toe is not visualized distal to the middle phalangeal base. Flexor and extensor tendons otherwise appear grossly intact but are suboptimally assessed in the toes. Mild third intermetatarsal bursitis. No significant joint effusion. IMPRESSION: Small ulcer distal third toe with soft tissue changes compatible with cellulitis as described. Osteomyelitis and likely extensive osseous destruction in the third distal and middle phalanges. Prob able reactive marrow edema in the third proximal phalanx but cannot exclude early osteomyelitis. Electronically signed by: Librado Mcmanus DO (08/23/2021 11:24 AM) [id number]
--- NOTE | 2021-08-23 12:05 | PDOC ---
[employer] PROGRESS NOTE Date of Service DOS: DATE: 08/23/21 TIME: 12:01 Chief Complaint Chief Complaint Right 3rd toe cellulitis - will empirically cover with vancomycin, rocephin, consult ID given reported history of osteomyelitis Right 3rd toe osteomyelitis - per report. Will assess arterial vascular supply to ascertain adequate healing potential HTN - cont home meds HLD - cont simvastatin DM2 - intolerant of oral diabetic meds. Levemir 70 units nightly and NovoLog 65 units during the day Seizure disorder - she sees Dr. Parker and is on Keppra zonisamide and carbamazepine. Notes last seizure was 3 weeks ago Epistaxis - from nasal swab, local oxymetolazine and pressure resolved in ED Anxiety - on prn lorazepam, counseled on judicious use given history of seizure disorder Insomnia - on Ambien 12.5 mg, counseled on use and neurology follow up given seizure disorder history Headaches - she mentions migraine type, on cyclobenzaprine as well as amitriptyline FEN - ADA diet PPX - heparin FULL CODE Dispo - inpatient History of Present Illness History of Present Illness Ms Truong is a 56yo female with PMHx HTN, HLD, DM2, seizure disorder who comes to ED accompanied by her significant other c/o worsening pain, swelling of her right 3rd toe. She was sent to ED by her supervisor harvesting due to outpatient radiographic imaging concerning for osteomyelitis of the right third toe distal phalanx and per ED staff it was communicated a positive MSSA wound culture as well. Patient seen bedside notes she has been getting nail care through podiatry and has been fighting an infection for over a month now. Failed outpatient antibiotics. She notes a history of diabetes on Levemir 70 units nightly and NovoLog 65 units during the day and has a seizure disorder, reports she sees Dr. Parker and is on Keppra zonisamide and carbamazepine. Her current concerns are some epistaxis after COVID-19 nasal swab and local pressure and oxymetazoline nasal spray have been applied with improvement bedside. Her other concerns are lorazepam Ambien 12.5 mg and cyclobenzaprine as well as amitriptyline be continued while she is hospitalized due to concerns for insomnia and history of headaches as well. 08/22: Labs with NA 133, glucose in upper 200s. Took some time to have her consent for glucose tested. Having some pain currently. Still aching. Arterial Doppler with no acute occlusive disease. 08/23/2021 No acute events overnight. Patient seen examined bedside. MRI completed showing osteomyelitis in the third distal and middle phalanges.. Sugars ranging in the mid 200s. I have changed her insulin glargine to 40 units twice daily. Increased her lispro to 27 units 3 times daily AC. Continue with R ISS and Accu-Cheks before meals and at bedtime. Patient's chart, labs, images were reviewed and discussed with RN Vitals/I&O Vitals/I&O: Vital Signs Date Time Temp Pulse Resp B/P (MAP) Pulse Ox O2 Delivery O2 Flow Rate FiO2 08/23/21 11:00 98.2 96 18 141/87 (105) 96 Room Air 98.2 I & O 08/22/21 08/22/21 08/23/21 15:00 23:00 07:00 Intake Total 200 ml 480 ml Balance 200 ml 480 ml Physical Exam General: Alert, Oriented X3, mild distress Abdomen: Normal bowel sounds, Soft, No tenderness, No hepatosplenomegaly, No masses Extremities: No clubbing, No cyanosis, No edema, Normal pulses, Other (Right middle toe swollen) Skin: No rashes, No breakdown, No significant lesion, Other (Right third toe red discolored with eschar on dorsum) Labs Labs: Laboratory Tests Test 08/22/21 16:31 08/22/21 17:01 08/22/21 20:36 08/23/21 08:10 Glucose (Fingerstick) 209 mg/dL (70-99) 198 mg/dL (70-99) 220 mg/dL (70-99) 242 mg/dL (70-99) Test 08/23/21 11:42 Glucose (Fingerstick) 289 mg/dL (70-99) Assessment and Plan Assessmemt and Plan Problems Medical Problems: (1) Anterior epistaxis Status: Acute (2) Osteomyelitis of right foot Status: Acute Comment Review of Relevant I have reviewed the following items sree (where applicable) has been applied. Medications: Current Medications Medications (Trade) Dose Ordered Sig/Emery Route PRN Reason Start Time Stop Time Status Last Admin Dose Admin Lactobacillus Rhamnosus (Culturelle) 1 cap BID PO 08/22/21 21:00 08/23/21 08:26 Piperacillin Sod/ Tazobactam Sod 3.375 gm/Sodium Chloride 50 ml @ 100 mls/hr Q6HRS IV 08/22/21 14:00 08/23/21 05:27 Justifications for Admission Other Justification WENDIE PAREKH MD Aug 23, 2021 12:05
--- NOTE | 2021-08-23 13:20 | PDOC ---
Infectious Disease Note Subjective Subjective Patient is feeling okay ROS ROS No nausea vomiting diarrhea Vital Sign Vital Signs Vital Signs Date Time Temp Pulse Resp B/P (MAP) Pulse Ox O2 Delivery O2 Flow Rate FiO2 08/23/21 12:18 Room Air 08/23/21 11:00 98.2 96 18 141/87 (105) 96 98.2 Physical Exam PHYSICAL EXAM GENERAL: Alert, oriented female, not in distress. VITAL SIGNS: Stable. Afebrile. HEENT: NAD. NECK: Supple. No JVP, no lymphadenopathy. LUNGS: Clear. HEART: S1, S2, regular. ABDOMEN: Soft, nontender, no organomegaly. EXTREMITIES: No edema, cyanosis. SKIN: Unremarkable except right third toe appears chronically infected with sinus tract as well as necrotic skin. NEUROLOGIC: The patient is alert, awake, and appropriate. No focal neurologic deficit. Labs Lab Laboratory Tests Test 08/22/21 16:31 08/22/21 17:01 08/22/21 20:36 08/23/21 08:10 Glucose (Fingerstick) 209 mg/dL (70-99) 198 mg/dL (70-99) 220 mg/dL (70-99) 242 mg/dL (70-99) Test 08/23/21 11:42 Glucose (Fingerstick) 289 mg/dL (70-99) Micro Microbiology 08/21/21 Blood Culture - Preliminary, Resulted NO GROWTH AFTER 1 DAY Objective Assessment IMPRESSION: 1. Right third toe distal phalanx osteomyelitis. 2. Right third toe gangrene, necrotic changes on the toe of the skin also. 3. Diabetes mellitus. 4. Hypertension. 5. Seizure disorder. Plan Plan of Care Continue antibiotics Patient need partial amputation LEW MARTIN MD Aug 23, 2021 13:20
[2021-08-23] MEDS ORDERED: ENOXAPARIN 40 MG/0.4 ML SYRINGE. SQ SCH ×2 (14:00)
[2021-08-23] MEDS: INSULIN GLARGINE SYRINGE. SQ SCH ×2 (14:35→22:41)
[2021-08-23 15:21] VITALS: BP 151/69
--- NOTE | 2021-08-23 16:44 | PDOC ---
GENERAL General: Patient seen bedside resting comfortably. She denies pain, nausea, vomitting, fever, chills. shortness of breath or chest pain. VITAL SIGNS Vital Signs/I&O: Vital Signs Date Time Temp Pulse Resp B/P (MAP) Pulse Ox O2 Delivery O2 Flow Rate FiO2 08/23/21 15:21 97.9 90 18 151/69 (96) 96 Room Air 97.9 I & O 08/22/21 08/22/21 08/23/21 15:00 23:00 07:00 Intake Total 200 ml 480 ml Balance 200 ml 480 ml ALLERGIES Allergies: Allergies Coded Allergies Type Severity Reaction Last Updated Verified escitalopram Allergy Intermediate 06/06/15 Yes etodolac Allergy Intermediate 06/06/15 Yes glyburide Allergy Intermediate 06/06/15 Yes metformin Allergy Intermediate 06/06/15 Yes sitagliptin Allergy Intermediate 06/06/15 Yes MEDS Medications: Current Medications Medications (Trade) Dose Ordered Sig/Emery Route PRN Reason Start Time Stop Time Status Last Admin Dose Admin Lactobacillus Rhamnosus (Culturelle) 1 cap BID PO 08/22/21 21:00 08/23/21 08:26 Insulin Glargine (Lantus Syringe) 40 unit BID SQ 08/23/21 13:00 08/23/21 14:35 Insulin Human Lispro (HumaLOG) 27 units TIDAC SQ 08/23/21 12:15 08/23/21 12:24 Enoxaparin Sodium (Lovenox 40mg Syringe) 40 mg Q12HR SQ 08/23/21 14:00 08/23/21 14:30 LAB Lab: Laboratory Tests Test 08/22/21 17:01 08/22/21 20:36 08/23/21 08:10 08/23/21 11:42 Glucose (Fingerstick) 198 mg/dL (70-99) H 220 mg/dL (70-99) H 242 mg/dL (70-99) H 289 mg/dL (70-99) H IMAGING Imaging: MRI right foot: +osteomyelitis of the 3rd digit distal, middle phalanx and possibly proximal phalanx. ASSESSMENT & PLAN A&P Physical exam: Note full thickness ulceration to distal tip of 3rd digit with positive probe to bone +pustular drainage, localized erythema to toe and MPJ 3rd right. no ischemic changes. Skin sloughing of the toe noted. +edema to 3rd toe. sensation absent to light touch and sharp dull. Muscle strength is 5/5. faintly palpable pulses. A/P: 56 year old female with osteomyelitis 3rd toe, DM peripheral neuropathy -Patient scheduled for 3rd toe amputation right foot tomorrow at noon -Discussed risks, benefits and possible complications to include delayed or non healing, infection, need for further surgery, loss of limb/life, DVT, PE, transfer lesion, phantom pain, chronic pain -All questions answered. -NPO after midnight -hold heparin/lovenox -ok for discharge after surgery 08/24 or 08/25 -Bathroom privileges only in surgical shoe right -Elevate right lower extremity Justifications for Admission Other Justification JENNIFER GALINDO DPM Aug 23, 2021 16:44
[2021-08-23 19:00] VITALS: BP 140/60
[2021-08-23] MEDS: SIMVASTATIN 10 MG TABLET PO SCH (21:00)
[2021-08-23 23:00] VITALS: BP 158/81
[2021-08-24] MEDS: PIPERACILLIN/TAZOBACTAM 3.375 GM in IV NORMAL SALINE 50ML 50 ML IV SCH ×5 (00:24→23:31)
[2021-08-24 03:27] VITALS: BP 134/61
[2021-08-24] MEDS ORDERED: IV RINGERS,LACTATED 1000ML 1,000 ML IV SCH ×2 (06:00→11:15)
[2021-08-24] MEDS ORDERED: PROCHLORPERAZINE 10 MG/2 ML VIAL. IVP PRN ×2 (06:00→11:15)
[2021-08-24] MEDS ORDERED: fentaNYL PF VIAL 100 MCG/2 ML VIAL IVP PRN ×4 (06:00→11:15)
[2021-08-24] MEDS ORDERED: MORPHINE SULFATE 2 MG/ML INJ. IVP PRN ×2 (06:00→11:15)
[2021-08-24] MEDS ORDERED: HYDROmorphone 2 MG/ML INJ. IVP PRN ×2 (06:00→11:15)
[2021-08-24 07:00] VITALS: BP 119/59
--- NOTE | 2021-08-24 07:26 | NUR ---
Has been NPO since [place]. Signed consents for surgery except anesthesia consent. Wants to talk w/ anesthesiologist first.
[2021-08-24] MEDS: INSULIN LISPRO 300 UNITS/3 ML VIAL. SQ SCH ×7 (07:30→21:23)
[2021-08-24] MEDS: INSULIN GLARGINE SYRINGE. SQ SCH ×2 (09:00→20:15)
[2021-08-24] MEDS: PANTOPRAZOLE 40 MG TABLET.DR. PO SCH ×2 (09:22→18:28)
[2021-08-24] MEDS: levETIRAcetam 500 MG TABLET PO SCH ×2 (09:23→19:58)
[2021-08-24] MEDS: carBAMazepine 200 MG TABLET PO SCH ×2 (09:23→19:58)
[2021-08-24] MEDS: LACTOBACILLUS RHAMNOSUS GG 1 CAPSULE. PO SCH ×2 (09:23→19:58)
[2021-08-24] MEDS ORDERED: MIDAZOLAM HCL/PF 2 MG/2 ML VIAL. ONE (10:43)
[2021-08-24] MEDS ORDERED: fentaNYL PF VIAL 100 MCG/2 ML VIAL ONE (10:43)
[2021-08-24] MEDS ORDERED: MIDAZOLAM HCL/PF 2 MG/2 ML VIAL. IV ONE (11:00)
[2021-08-24] MEDS ORDERED: fentaNYL PF VIAL 100 MCG/2 ML VIAL IVP ONE (11:00)
[2021-08-24] MEDS ORDERED: FAMOTIDINE 20 MG/2 ML VIAL ONE (11:07)
[2021-08-24] MEDS: INSULIN LISPRO 100 UNIT/ML 3ML VIAL for OP,RR ONLY. SQ PRN ×2 (11:12→13:18)
[2021-08-24] MEDS ORDERED: FAMOTIDINE 20 MG/2 ML VIAL IVP ONE (11:15)
[2021-08-24] MEDS ORDERED: PROPOFOL 10 MG/ML (20ML) VIAL. IV ONE (11:26)
--- NOTE | 2021-08-24 12:00 | PDOC ---
[facility] PROGRESS NOTE Date of Service DOS: DATE: 08/24/21 TIME: 11:59 Chief Complaint Chief Complaint Right 3rd toe cellulitis - will empirically cover with vancomycin, rocephin, consult ID given reported history of osteomyelitis Right 3rd toe osteomyelitis third toe amputation 08/16/2021- per report. Will assess arterial vascular supply to ascertain adequate healing potential HTN - cont home meds HLD - cont simvastatin DM2 - intolerant of oral diabetic meds. Levemir 70 units nightly and NovoLog 65 units during the day Seizure disorder - she sees Dr. Parker and is on Keppra zonisamide and carbamazepine. Notes last seizure was 3 weeks ago Epistaxis - from nasal swab, local oxymetolazine and pressure resolved in ED Anxiety - on prn lorazepam, counseled on judicious use given history of seizure disorder Insomnia - on Ambien 12.5 mg, counseled on use and neurology follow up given seizure disorder history Headaches - she mentions migraine type, on cyclobenzaprine as well as amitriptyline FEN - ADA diet PPX - heparin FULL CODE Dispo - inpatient History of Present Illness History of Present Illness Ms Truong is a 56yo female with PMHx HTN, HLD, DM2, seizure disorder who comes to ED accompanied by her significant other c/o worsening pain, swelling of her right 3rd toe. She was sent to ED by her advance agent due to outpatient radiographic imaging concerning for osteomyelitis of the right third toe distal phalanx and per ED staff it was communicated a positive MSSA wound culture as well. Patient seen bedside notes she has been getting nail care through podiatry and has been fighting an infection for over a month now. Failed outpatient antibiotics. She notes a history of diabetes on Levemir 70 units nightly and NovoLog 65 units during the day and has a seizure disorder, reports she sees Dr. Parker and is on Keppra zonisamide and carbamazepine. Her current concerns are some epistaxis after COVID-19 nasal swab and local pressure and oxymetazoline nasal spray have been applied with improvement bedside. Her other concerns are lorazepam Ambien 12.5 mg and cyclobenzaprine as well as amitriptyline be continued while she is hospitalized due to concerns for insomnia and history of headaches as well. 08/22: Labs with NA 133, glucose in upper 200s. Took some time to have her consent for glucose tested. Having some pain currently. Still aching. Arterial Doppler with no acute occlusive disease. 08/23/2021 No acute events overnight. Patient seen examined bedside. MRI completed showing osteomyelitis in the third distal and middle phalanges.. Sugars ranging in the mid 200s. I have changed her insulin glargine to 40 units twice daily. Increased her lispro to 27 units 3 times daily AC. Continue with R ISS and Accu-Cheks before meals and at bedtime. Patient's chart, labs, images were reviewed and discussed with RN 08/24/2021 No acute events overnight. Patient seen examined bedside. Plan for third toe amputation today for osteomyelitis. We will wait for intraoperative wound culture results and adjust antibiotics as necessary. Patient currently n.p.o. except for sips with meds and awaiting surgery. No concerns from nursing. Patient's chart, labs, images were reviewed and discussed with RN Vitals/I&O Vitals/I&O: Vital Signs Date Time Temp Pulse Resp B/P (MAP) Pulse Ox O2 Delivery O2 Flow Rate FiO2 08/24/21 11:15 97.5 83 142/87 96 Room Air 3.0 97.5 08/24/21 10:57 15 I & O 08/23/21 08/23/21 08/24/21 15:00 23:00 07:00 Intake Total 420 ml 100 ml Balance 420 ml 100 ml Physical Exam Physical Exam: GENERAL: Alert, oriented female, not in distress. VITAL SIGNS: Stable. Afebrile. HEENT: NAD. NECK: Supple. No JVP, no lymphadenopathy. LUNGS: Clear. HEART: S1, S2, regular. ABDOMEN: Soft, nontender, no organomegaly. EXTREMITIES: No edema, cyanosis. SKIN: Unremarkable except right third toe appears chronically infected with sinus tract as well as necrotic skin. NEUROLOGIC: The patient is alert, awake, and appropriate. No focal neurologic deficit. General: Alert, Oriented X3, mild distress Abdomen: Normal bowel sounds, Soft, No tenderness, No hepatosplenomegaly, No masses Extremities: No clubbing, No cyanosis, No edema, Normal pulses, Other (Right middle toe swollen) Skin: No rashes, No breakdown, No significant lesion, Other (Right third toe red discolored with eschar on dorsum) Labs Labs: Laboratory Tests Test 08/23/21 16:57 08/23/21 22:32 08/24/21 07:23 08/24/21 11:01 Glucose (Fingerstick) 230 mg/dL (70-99) 285 mg/dL (70-99) 206 mg/dL (70-99) 254 mg/dL (70-99) Assessment and Plan Assessmemt and Plan Problems Medical Problems: (1) Anterior epistaxis Status: Acute (2) Osteomyelitis of right foot Status: Acute Comment Review of Relevant I have reviewed the following items sree (where applicable) has been applied. Medications: Current Medications Medications (Trade) Dose Ordered Sig/Emery Route PRN Reason Start Time Stop Time Status Last Admin Dose Admin Insulin Glargine (Lantus Syringe) 40 unit BID SQ 08/23/21 13:00 08/23/21 22:41 Insulin Human Lispro (HumaLOG) 27 units TIDAC SQ 08/23/21 12:15 08/23/21 17:49 Enoxaparin Sodium (Lovenox 40mg Syringe) 40 mg Q12HR SQ 08/23/21 14:00 08/23/21 16:47 DC 08/23/21 14:30 Fentanyl Citrate (Fentanyl 2ml Vial) 100 mcg 1X ONCE IVP 08/24/21 11:00 08/24/21 11:01 DC 08/24/21 10:53 Midazolam HCl (Versed) 2 mg 1X ONCE IV 08/24/21 11:00 08/24/21 11:01 DC 08/24/21 10:52 Ringer's Solution 1,000 ml @ 30 mls/hr Q24H IV 08/24/21 11:15 08/24/21 23:14 08/24/21 11:13 Insulin Human Lispro (HumaLOG VIAL for OP,RR ONLY) 0-10 units PRN Q1HR PRN SQ PER PROTOCOL 08/24/21 11:15 08/25/21 11:14 08/24/21 11:12 Famotidine (Pepcid Vial) 20 mg 1X ONCE IVP 08/24/21 11:15 08/24/21 11:19 DC 08/24/21 11:13 Justifications for Admission Other Justification WENDIE PAREKH MD Aug 24, 2021 12:00
[2021-08-24] MEDS ORDERED: DEXAMETHASONE SOD PHOS 4 MG/ML VIAL ONE (12:06)
[2021-08-24] MEDS ORDERED: LIDOCAINE 1% Multi-Dose 20 ML VIAL. ONE (12:06)
[2021-08-24] MEDS ORDERED: BUPIVACAINE MPF 0.5% 30 ML VIAL. ONE (12:06)
[2021-08-24] MEDS ORDERED: KETAMINE HCL IN NACL, ISO-OSM 50 MG/5 ML SYRINGE ONE (12:22)
--- NOTE | 2021-08-24 13:13 | PDOC4 ---
OPERATIVE NOTE: Surgeon: Leo Pre op diagnosis: 3rd toe osteomyelitis right foot post op diagnosis: Same Procedure: 3rd toe amputation right foot Anesthesia: IV sedation and local 3rd ray block right foot Hemostasis: right ankle tourniquet at 250mmhg x 24 minutes EBL: 1mL Pathology: 3rd toe right foot intraoperative findings: no proximal signs tracts, 3rd metatarsal head white with no signs of infection. Patient tolerated both anesthesia and procedure well transferred to PACU with VSS and VSI right foot. OK for discharge home today per podiatry perspective with po antibiotics recommended by ID. follow up Saturday or Sat next week Elevate right lower extremity, bathroom privileges only surgical shoe right when weightbearing only. JENNIFER GALINDO DPM Aug 24, 2021 13:13
--- NOTE | 2021-08-24 13:56 | RAD ---
XR FOOT_RIGHT 3 VIEWS History: Reason: status post 3rd toe amp right. Technique: 3 views right foot. Comparison: None. Findings: Status post third digit amputation. Expected postoperative findings. No dislocation. No acute fractur e. Plantar calcaneal spur. Dorsal foot soft tissues when. Mild midfoot DJD. Impression: 1. Status post third digit amputation. Electronically signed by: Juvenal Doherty DO (08/24/2021 1:54 PM) [id number]
--- NOTE | 2021-08-24 16:56 | OP ---
DATE OF SURGERY: 08/24/2021 PREOPERATIVE DIAGNOSIS: Third toe osteomyelitis, right foot. POSTOPERATIVE DIAGNOSIS: Third toe osteomyelitis, right foot. PROCEDURE: Third toe amputation of the right foot. SURGEON: Donnie Bailey DPM ANESTHESIA: IV sedation with local block to the right foot third ray. HEMOSTASIS: Right ankle tourniquet at 250 mmHg for 24 minutes. INDICATIONS: The patient is a 56-year-old female with past medical history significant for diabetes, peripheral neuropathy, peripheral arterial disease who is being treated as an outpatient for a wound to the third toe. She missed her followup appointment after one week and did not return until 3-1/2 weeks and noted to have positive probe to bone and x-ray changes to the distal phalanx. She was ordered labs and MRI and failed to have these done outpatient and due to the worsening of the cellulitis, she was recommended to go to the Emergency Room for admission for IV antibiotics. She was admitted for IV antibiotics, had an MRI, which showed osteomyelitis of the distal and middle phalanx with questionable changes to the proximal phalanx, thus recommended third toe amputation at the level of the MPJ. We discussed with the patient the risks, benefits and complications to include delayed or nonhealing, need for further surgery, transfer lesion, infection, blood clot to the leg, blood clot to the lung, chronic pain, chronic swelling, loss of limb or life, damage to nerve or blood vessels. All questions were answered. The patient understands and signed consent freely and put in chart. All questions were answered. No guarantees were made. DESCRIPTION OF PROCEDURE: The patient was transported to the operating room via a cart and was left on her hospital bed. A well-padded tourniquet was placed over the right ankle. IV sedation was administered per Anesthesia and a local block was given to the third ray consisting of a 1:1 mixture of 1% lidocaine plain and 0.25% Marcaine plain, 20 mL total. The right foot was then prepped and draped in the usual aseptic manner. [place] was used to exsanguinate the right lower extremity and the right ankle tourniquet was inflated to 250 mmHg. Attention was directed to the base of the third toe where two converging semi-elliptical incisions were made at the base. This was deepened to the level of the third metatarsophalangeal joint where the toe was disarticulated and removed in toto. There was no noted proximal sinus tracking and there was a white glistening bone of the third metatarsal head. A wound culture was then taken at this time and the 3 liter bag pulse lavage was then utilized to copiously irrigate the surgical site. The skin was then reapproximated with 3-0 nylon and the wound was dressed with Betadine-soaked Adaptic gauze, 4 x 4s, Kerlix bandage and Logan bandage. The tourniquet was deflated after 24 minutes and good perfusion was noted to all digits of the right foot. The patient tolerated both anesthesia and procedure well and was transferred to the PACU with vital signs stable and vascular status intact to the right foot. POSTOPERATIVE PLAN: The patient is okay for discharge home today per Podiatry perspective with p.o. antibiotics recommended by Infectious Disease. She may follow up next week, Saturday or Saturday of next week. Recommend elevate the right lower extremity, bathroom privileges only to the surgical shoe right foot when weightbearing only and she is to call with any other issues. BEBETO DR: Bradley TID: [id number]
[2021-08-24 19:00] VITALS: BP 175/74
--- NOTE | 2021-08-24 19:43 | NUR ---
refused 0800 Humalog and Lantus. Explained to patient blood sugar was 205. She stated she was not eating and refused the insulin.
--- NOTE | 2021-08-24 19:45 | NUR ---
patient wanted food right after surgery. Educated patient on her advanced as tolerated diet. She stated she still wanted regular tray. Non compliant with diet. She ate some jello while waiting for her tray. Tolerated it well
[2021-08-24] MEDS: HYDROcodone/APAP 5/325MG 1 TAB TABLET PO PRN (19:57)
[2021-08-24] MEDS: SIMVASTATIN 10 MG TABLET PO SCH (19:58)
--- NOTE | 2021-08-24 21:00 | NUR ---
FSBS 367. Lantus given, call to Dr. Peters regarding SSI orders due to FSBS being above parameters.
--- NOTE | 2021-08-24 21:06 | NUR ---
Order received from Dr. Peters for 13 units now.
[2021-08-24] MEDS ORDERED: INSULIN LISPRO 300 UNITS/3 ML VIAL. SQ ONE (21:15)
[2021-08-24 23:00] VITALS: BP 146/76
[2021-08-24] MEDS: ZOLPIDEM 5 MG TABLET. PO PRN (23:26)
[2021-08-25 03:00] VITALS: BP 120/68
[2021-08-25] MEDS: PANTOPRAZOLE 40 MG TABLET.DR. PO SCH ×2 (06:04→16:30)
[2021-08-25] MEDS: PIPERACILLIN/TAZOBACTAM 3.375 GM in IV NORMAL SALINE 50ML 50 ML IV SCH ×4 (06:05→23:37)
[2021-08-25 07:00] VITALS: BP 151/80
[2021-08-25] MEDS: HYDROcodone/APAP 5/325MG 1 TAB TABLET PO PRN (08:33)
[2021-08-25] MEDS: levETIRAcetam 500 MG TABLET PO SCH ×2 (08:34→21:03)
[2021-08-25] MEDS: LACTOBACILLUS RHAMNOSUS GG 1 CAPSULE. PO SCH ×2 (08:34→21:03)
[2021-08-25] MEDS: carBAMazepine 200 MG TABLET PO SCH ×2 (08:34→21:03)
[2021-08-25] MEDS: INSULIN LISPRO 300 UNITS/3 ML VIAL. SQ SCH ×7 (08:39→21:09)
[2021-08-25] MEDS: INSULIN GLARGINE SYRINGE. SQ SCH ×2 (08:55→21:10)
[2021-08-25 11:00] VITALS: BP 109/57
[2021-08-25] MEDS ORDERED: HYDR-2761 PO (12:29)
[2021-08-25] MEDS ORDERED: LINE600T12 PO (12:58)
--- NOTE | 2021-08-25 13:01 | PDOC ---
GENERAL General: 56 year old female status post 3rd digit amputation right foot seen sitting in her chair with legs elevated. She notes mild pain to surgical site. She denies nausea, vomitting, fever, chills, shortness of breath or chest pain. Dressing to right foot clean, dry, intact. VITAL SIGNS Vital Signs/I&O: Vital Signs Date Time Temp Pulse Resp B/P (MAP) Pulse Ox O2 Delivery O2 Flow Rate FiO2 08/25/21 11:00 98.0 84 14 109/57 (74) 91 Room Air 98.0 08/24/21 13:53 2.0 I & O 08/24/21 08/24/21 08/25/21 15:00 23:00 07:00 Intake Total 500 ml 400 ml Output Total 1 ml Balance 499 ml 400 ml ALLERGIES Allergies: Allergies Coded Allergies Type Severity Reaction Last Updated Verified escitalopram Allergy Intermediate 06/06/15 Yes etodolac Allergy Intermediate 06/06/15 Yes glyburide Allergy Intermediate 06/06/15 Yes metformin Allergy Intermediate 06/06/15 Yes sitagliptin Allergy Intermediate 06/06/15 Yes MEDS Medications: Current Medications Medications (Trade) Dose Ordered Sig/Emery Route PRN Reason Start Time Stop Time Status Last Admin Dose Admin Insulin Human Lispro (HumaLOG) 13 units 1X ONCE SQ 08/24/21 21:15 08/24/21 21:16 DC 08/24/21 21:23 LAB Lab: Laboratory Tests Test 08/24/21 13:14 08/24/21 18:37 08/24/21 19:56 08/25/21 08:32 Glucose (Fingerstick) 205 mg/dL (70-99) H 298 mg/dL (70-99) H 367 mg/dL (70-99) H 203 mg/dL (70-99) H Test 08/25/21 11:33 Glucose (Fingerstick) 198 mg/dL (70-99) H IMAGING Imaging: physical exam: note sanguinous drainage to inner layers of bandage. note status post 3rd digit amputation with skin edges well alligned and dusky changes to the incision site. sutures are intact. localized erythema and edema. no active drainage. ASSESSMENT & PLAN A&P 56 year old female status post 3rd digit amputation post op day 1, DM with peripheral neuropathy and PVD -Concern for dusky changes to incision site. -Applied light betadine, gauze, kerlex bandage roll, armond bandage -She is to keep dressing clean,dry, intact. -Consult cardiology for evaluation of PVD, consider angiogram due to acute post op changes noted today on dressing change. -Bathroom privileges only in surgical shoe right foot. -Elevate right lower extremity -Patient scheduled for follow up Wed in [facility] office. -ID recommendations appreciated. Justifications for Admission Other Justification JENNIFER GALINDO DPM Aug 25, 2021 13:01
--- NOTE | 2021-08-25 13:06 | PDOC ---
[employer] PROGRESS NOTE Date of Service DOS: DATE: 08/25/21 TIME: 13:04 Chief Complaint Chief Complaint Right 3rd toe cellulitis - will empirically cover with vancomycin, rocephin, consult ID given reported history of osteomyelitis Right 3rd toe osteomyelitis third toe amputation 08/16/2021- per report. Will assess arterial vascular supply to ascertain adequate healing potential HTN - cont home meds HLD - cont simvastatin DM2 - intolerant of oral diabetic meds. Levemir 70 units nightly and NovoLog 65 units during the day Seizure disorder - she sees Dr. Parker and is on Keppra zonisamide and carbamazepine. Notes last seizure was 3 weeks ago Epistaxis - from nasal swab, local oxymetolazine and pressure resolved in ED Anxiety - on prn lorazepam, counseled on judicious use given history of seizure disorder Insomnia - on Ambien 12.5 mg, counseled on use and neurology follow up given seizure disorder history Headaches - she mentions migraine type, on cyclobenzaprine as well as amitriptyline FEN - ADA diet PPX - heparin FULL CODE Dispo - inpatient History of Present Illness History of Present Illness Ms Truong is a 56yo female with PMHx HTN, HLD, DM2, seizure disorder who comes to ED accompanied by her significant other c/o worsening pain, swelling of her right 3rd toe. She was sent to ED by her relations director due to outpatient radiographic imaging concerning for osteomyelitis of the right third toe distal phalanx and per ED staff it was communicated a positive MSSA wound culture as well. Patient seen bedside notes she has been getting nail care through podiatry and has been fighting an infection for over a month now. Failed outpatient antibiotics. She notes a history of diabetes on Levemir 70 units nightly and NovoLog 65 units during the day and has a seizure disorder, reports she sees Dr. Parker and is on Keppra zonisamide and carbamazepine. Her current concerns are some epistaxis after COVID-19 nasal swab and local pressure and oxymetazoline nasal spray have been applied with improvement bedside. Her other concerns are lorazepam Ambien 12.5 mg and cyclobenzaprine as well as amitriptyline be continued while she is hospitalized due to concerns for insomnia and history of headaches as well. 08/22: Labs with NA 133, glucose in upper 200s. Took some time to have her consent for glucose tested. Having some pain currently. Still aching. Arterial Doppler with no acute occlusive disease. 08/23/2021 No acute events overnight. Patient seen examined bedside. MRI completed showing osteomyelitis in the third distal and middle phalanges.. Sugars ranging in the mid 200s. I have changed her insulin glargine to 40 units twice daily. Increased her lispro to 27 units 3 times daily AC. Continue with R ISS and Accu-Cheks before meals and at bedtime. Patient's chart, labs, images were reviewed and discussed with RN 08/24/2021 No acute events overnight. Patient seen examined bedside. Plan for third toe amputation today for osteomyelitis. We will wait for intraoperative wound culture results and adjust antibiotics as necessary. Patient currently n.p.o. except for sips with meds and awaiting surgery. No concerns from nursing. Patient's chart, labs, images were reviewed and discussed with RN 08/25/2021 No acute events overnight. Patient seen examined bedside. Pain is well controlled. Status post third toe amputation. Podiatry evaluated wound and was concerned for dusky changes near surgical incision site. Cardiology consulted for possible angio. Patient's chart, labs, images were reviewed and discussed with RN Vitals/I&O Vitals/I&O: Vital Signs Date Time Temp Pulse Resp B/P (MAP) Pulse Ox O2 Delivery O2 Flow Rate FiO2 08/25/21 11:00 98.0 84 14 109/57 (74) 91 Room Air 98.0 08/24/21 13:53 2.0 I & O 08/24/21 08/24/21 08/25/21 15:00 23:00 07:00 Intake Total 500 ml 400 ml Output Total 1 ml Balance 499 ml 400 ml Physical Exam Physical Exam: GENERAL: Alert, oriented female, not in distress. VITAL SIGNS: Stable. Afebrile. HEENT: NAD. NECK: Supple. No JVP, no lymphadenopathy. LUNGS: Clear. HEART: S1, S2, regular. ABDOMEN: Soft, nontender, no organomegaly. EXTREMITIES: No edema, cyanosis. SKIN: Unremarkable except right third toe appears chronically infected with sinus tract as well as necrotic skin. NEUROLOGIC: The patient is alert, awake, and appropriate. No focal neurologic deficit. General: Alert, Oriented X3, mild distress Abdomen: Normal bowel sounds, Soft, No tenderness, No hepatosplenomegaly, No masses Extremities: No clubbing, No cyanosis, No edema, Normal pulses, Other (Right middle toe swollen) Skin: No rashes, No breakdown, No significant lesion, Other (Right third toe red discolored with eschar on dorsum) Labs Labs: Laboratory Tests Test 08/24/21 13:14 08/24/21 18:37 08/24/21 19:56 08/25/21 08:32 Glucose (Fingerstick) 205 mg/dL (70-99) 298 mg/dL (70-99) 367 mg/dL (70-99) 203 mg/dL (70-99) Test 08/25/21 11:33 Glucose (Fingerstick) 198 mg/dL (70-99) Assessment and Plan Assessmemt and Plan Problems Medical Problems: (1) Anterior epistaxis Status: Acute (2) Osteomyelitis of right foot Status: Acute Comment Review of Relevant I have reviewed the following items sree (where applicable) has been applied. Medications: Current Medications Medications (Trade) Dose Ordered Sig/Emery Route PRN Reason Start Time Stop Time Status Last Admin Dose Admin Insulin Human Lispro (HumaLOG) 13 units 1X ONCE SQ 08/24/21 21:15 08/24/21 21:16 DC 08/24/21 21:23 Justifications for Admission Other Justification WENDIE PAREKH MD Aug 25, 2021 13:05
--- NOTE | 2021-08-25 13:48 | PDOC2 ---
ANH BRODY CRUSHER OPERATOR 08/25/21 1348: CARDIAC CONSULT DATE OF CONSULT Date of Consult DATE: 08/25/21 TIME: 13:43 REASON FOR CONSULT Reason for Consult: PVD, dusky to 3rd digit amputation site REFERRING PHYSICIAN Referring Physician: Leo SOURCE Source: Chart review, Patient HISTORY OF PRESENT ILLNESS HISTORY OF PRESENT ILLNESS This is a 56 yo female admitted for infection to her right toe and may need amputations. She then got admitted and had amputations of her 3rd digit on her right foot by her commercial green building architect. Concern about circulation to right foot. Unable to check pulse as her foot is wrapped with dressing post surgery. Duplex to both LE have PAD but appears to be worse to RLE. Consult is for further workup for PAD. Denies any chest pain, or SOA. Denies any past hx of CAD, VTE or arrhythmias. She has HTN, HLP and DM2. Her surgical pain is controlled. PAST MEDICAL HISTORY Cardiovascular: HTN, Hyperlipidemia CENTRAL NERVOUS SYSTEM: Seizure Endocrine: Diabetes (2), Hypothyroidism PAST SURGICAL HISTORY Past Surgical History: Other (vagal nerve stimulator) FAMILY HISTORY Family History: Hypertension SOCIAL HISTORY Smoke: No ALCOHOL: none Drugs: None Lives: with Family CURRENT MEDICATIONS CURRENT MEDICATIONS Current Medications Medications (Trade) Dose Ordered Sig/Emery Route PRN Reason Start Time Stop Time Status Last Admin Dose Admin Insulin Human Lispro (HumaLOG) 13 units 1X ONCE SQ 08/24/21 21:15 08/24/21 21:16 DC 08/24/21 21:23 ALLERGIES ALLERGIES: Coded Allergies: escitalopram (Verified Allergy, Intermediate, 06/06/15) etodolac (Verified Allergy, Intermediate, 06/06/15) glyburide (Verified Allergy, Intermediate, 06/06/15) metformin (Verified Allergy, Intermediate, 06/06/15) sitagliptin (Verified Allergy, Intermediate, 06/06/15) ROS Review of System 14 point ROS evaluated with pertinent positives noted per HPI PHYSICAL EXAM General: Alert, Oriented X3, Cooperative, No acute distress HEENT: Atraumatic, Mucous membr. moist/pink Lungs: Clear to auscultation, Normal air movement Heart: Regular rate, Normal S1, Normal S2, No murmurs Abdomen: Soft, No tenderness Extremities: No cyanosis, Other (S/P 3rd digit amputation of the right foot) Skin: Other (right foot surgical wound) Neuro: Normal speech, Sensation intact Psych/Mental Status: Mental status NL, Mood NL MUSCULOSKELETAL: Full range of motion without pain VITALS/I&O VITALS/I&O: Vital Signs Date Time Temp Pulse Resp B/P (MAP) Pulse Ox O2 Delivery O2 Flow Rate FiO2 08/25/21 11:00 98.0 84 14 109/57 (74) 91 Room Air 98.0 08/24/21 13:53 2.0 I & O 08/24/21 08/24/21 08/25/21 15:00 23:00 07:00 Intake Total 500 ml 400 ml Output Total 1 ml Balance 499 ml 400 ml LABS Lab: Laboratory Tests Test 08/24/21 18:37 08/24/21 19:56 08/25/21 08:32 08/25/21 11:33 Glucose (Fingerstick) 298 mg/dL (70-99) H 367 mg/dL (70-99) H 203 mg/dL (70-99) H 198 mg/dL (70-99) H ASSESSMENT/PLAN ASSESSMENT/PLAN 1. S/P 3rd digit amputations of the right foot 2. LE PAD: abnormal arterial duplex 3. HTN: controlled 4. HLP 5. DM2: per PCP 6. Hx of seizure with vagal nerve stimulator Recommendations 1. Continue post op care. Obtain baseline EKG 2. Start on baby ASA. Continue secondary prevention measures 3. Femoral runoff as outpt in 1-2 weeks CHANCE QUINTERO MD 08/26/21 0856: CARDIAC CONSULT ASSESSMENT/PLAN ASSESSMENT/PLAN Patient seen and examined. Agree with CARD CUTTER HELPER's assessment and plan Arterial duplex scan results noted Plan aortogram with runoff as outpatient Thank you for your consultation ANH BRODY APRN Aug 25, 2021 13:48 CHANCE QUINTERO MD Aug 26, 2021 08:56
[2021-08-25] MEDS: ASPIRIN ENTERIC COATED 81 MG TABLET.DR. PO SCH (14:00)
--- NOTE | 2021-08-25 14:02 | PDOC ---
Infectious Disease Note Subjective Subjective Patient is feeling okay ROS ROS no n/v/d/ Vital Sign Vital Signs Vital Signs Date Time Temp Pulse Resp B/P (MAP) Pulse Ox O2 Delivery O2 Flow Rate FiO2 08/25/21 11:00 98.0 84 14 109/57 (74) 91 Room Air 98.0 08/24/21 13:53 2.0 Physical Exam PHYSICAL EXAM GENERAL: Alert, oriented female, not in distress. VITAL SIGNS: Stable. Afebrile. HEENT: NAD. NECK: Supple. No JVP, no lymphadenopathy. LUNGS: Clear. HEART: S1, S2, regular. ABDOMEN: Soft, nontender, no organomegaly. EXTREMITIES: No edema, cyanosis. SKIN: Unremarkable except right third toe appears chronically infected with sinus tract as well as necrotic skin. NEUROLOGIC: The patient is alert, awake, and appropriate. No focal neurologic deficit. Labs Lab Laboratory Tests Test 08/24/21 18:37 08/24/21 19:56 08/25/21 08:32 08/25/21 11:33 Glucose (Fingerstick) 298 mg/dL (70-99) 367 mg/dL (70-99) 203 mg/dL (70-99) 198 mg/dL (70-99) Micro Microbiology 08/21/21 Blood Culture - Preliminary, Resulted NO GROWTH AFTER 1 DAY Objective Assessment IMPRESSION: 1. Right third toe distal phalanx osteomyelitis. s/p toe amputation 2. Right third toe gangrene, necrotic changes on the toe of the skin also. 3. Diabetes mellitus. 4. Hypertension. 5. Seizure disorder. Plan Plan of Care Continue antibiotics ok to d/c on po zyvox LEW MARTIN MD Aug 25, 2021 14:02
[2021-08-25 15:00] VITALS: BP 120/64
[2021-08-25 19:00] VITALS: BP 148/82
--- NOTE | 2021-08-25 19:33 | NUR ---
held dismissal to in the am. cardiology would like to see her in 2 weeks. Her surgeon wants to see her on Saturday. kyara continues through IV. agrees to stay the night
[2021-08-25] MEDS: SIMVASTATIN 10 MG TABLET PO SCH (21:03)
[2021-08-25] MEDS: ZOLPIDEM 5 MG TABLET. PO PRN (23:00)
[2021-08-25 23:05] VITALS: BP 145/78
[2021-08-26 03:00] VITALS: BP 140/74
[2021-08-26] MEDS: PIPERACILLIN/TAZOBACTAM 3.375 GM in IV NORMAL SALINE 50ML 50 ML IV SCH ×4 (05:42→23:47)
[2021-08-26] MEDS: HYDROcodone/APAP 5/325MG 1 TAB TABLET PO PRN ×2 (05:47→20:20)
[2021-08-26 07:00] VITALS: BP 156/92
[2021-08-26] MEDS: ASPIRIN ENTERIC COATED 81 MG TABLET.DR. PO SCH (09:32)
[2021-08-26] MEDS: levETIRAcetam 500 MG TABLET PO SCH ×2 (09:32→20:15)
[2021-08-26] MEDS: carBAMazepine 200 MG TABLET PO SCH ×2 (09:32→20:14)
[2021-08-26] MEDS: LACTOBACILLUS RHAMNOSUS GG 1 CAPSULE. PO SCH ×2 (09:32→20:15)
[2021-08-26] MEDS: PANTOPRAZOLE 40 MG TABLET.DR. PO SCH ×2 (09:32→17:03)
[2021-08-26] MEDS: INSULIN LISPRO 300 UNITS/3 ML VIAL. SQ SCH ×7 (09:39→21:33)
[2021-08-26] MEDS: INSULIN GLARGINE SYRINGE. SQ SCH ×2 (09:39→21:31)
--- NOTE | 2021-08-26 10:33 | PDOC ---
[facility] PROGRESS NOTE Date of Service DOS: DATE: 08/26/21 TIME: 10:28 Chief Complaint Chief Complaint Right 3rd toe cellulitis - will empirically cover with vancomycin, rocephin, consult ID given reported history of osteomyelitis Right 3rd toe osteomyelitis third toe amputation 08/16/2021- per report. Will assess arterial vascular supply to ascertain adequate healing potential HTN - cont home meds HLD - cont simvastatin DM2 - intolerant of oral diabetic meds. Levemir 70 units nightly and NovoLog 65 units during the day Seizure disorder - she sees Dr. Parker and is on Keppra zonisamide and carbamazepine. Notes last seizure was 3 weeks ago Epistaxis - from nasal swab, local oxymetolazine and pressure resolved in ED Anxiety - on prn lorazepam, counseled on judicious use given history of seizure disorder Insomnia - on Ambien 12.5 mg, counseled on use and neurology follow up given seizure disorder history Headaches - she mentions migraine type, on cyclobenzaprine as well as amitriptyline PVD - aotogram with runoff as outpatient FEN - ADA diet PPX - heparin FULL CODE Dispo - inpatient History of Present Illness History of Present Illness Ms Truong is a 56yo female with PMHx HTN, HLD, DM2, seizure disorder who comes to ED accompanied by her significant other c/o worsening pain, swelling of her right 3rd toe. She was sent to ED by her civil structural engineer due to outpatient radiographic imaging concerning for osteomyelitis of the right third toe distal phalanx and per ED staff it was communicated a positive MSSA wound culture as well. Patient seen bedside notes she has been getting nail care through podiatry and has been fighting an infection for over a month now. Failed outpatient antibiotics. She notes a history of diabetes on Levemir 70 units nightly and NovoLog 65 units during the day and has a seizure disorder, reports she sees Dr. Parker and is on Keppra zonisamide and carbamazepine. Her current concerns are some epistaxis after COVID-19 nasal swab and local pressure and oxymetazoline nasal spray have been applied with improvement bedside. Her other concerns are lorazepam Ambien 12.5 mg and cyclobenzaprine as well as amitriptyline be continued while she is hospitalized due to concerns for insomnia and history of headaches as well. 08/22: Labs with NA 133, glucose in upper 200s. Took some time to have her consent for glucose tested. Having some pain currently. Still aching. Arterial Doppler with no acute occlusive disease. 08/23/2021 No acute events overnight. Patient seen examined bedside. MRI completed showing osteomyelitis in the third distal and middle phalanges.. Sugars ranging in the mid 200s. I have changed her insulin glargine to 40 units twice daily. Increased her lispro to 27 units 3 times daily AC. Continue with R ISS and Accu-Cheks before meals and at bedtime. Patient's chart, labs, images were reviewed and discussed with RN 08/24/2021 No acute events overnight. Patient seen examined bedside. Plan for third toe amputation today for osteomyelitis. We will wait for intraoperative wound culture results and adjust antibiotics as necessary. Patient currently n.p.o. except for sips with meds and awaiting surgery. No concerns from nursing. Patient's chart, labs, images were reviewed and discussed with RN 08/25/2021 No acute events overnight. Patient seen examined bedside. Pain is well controlled. Status post third toe amputation. Podiatry evaluated wound and was concerned for dusky changes near surgical incision site. Cardiology consulted for possible angio. Patient's chart, labs, images were reviewed and discussed with RN 08/26/2021 No acute events overnight. Patient seen examined bedside. Pain is well controlled. Needs assistant professor of archaeology with getting out of bed. PT OT recommended rehab. Cardiology consult recommended aortogram with runoff as an outpatient. [place]per ssings are clear dry and intact. Patient's chart, labs, images were reviewed and discussed with RN Vitals/I&O Vitals/I&O: Vital Signs Date Time Temp Pulse Resp B/P (MAP) Pulse Ox O2 Delivery O2 Flow Rate FiO2 08/26/21 07:57 Room Air 08/26/21 07:00 98.1 80 18 156/92 (113) 92 98.1 08/26/21 05:47 2.0 Physical Exam Physical Exam: GENERAL: Alert, oriented female, not in distress. VITAL SIGNS: Stable. Afebrile. HEENT: NAD. NECK: Supple. No JVP, no lymphadenopathy. LUNGS: Clear. HEART: S1, S2, regular. ABDOMEN: Soft, nontender, no organomegaly. EXTREMITIES: No edema, cyanosis. SKIN: Unremarkable except right third toe appears chronically infected with sinus tract as well as necrotic skin. NEUROLOGIC: The patient is alert, awake, and appropriate. No focal neurologic deficit. General: Alert, Oriented X3, Cooperative, No acute distress Heart: Regular rate, Normal S1, Normal S2, No murmurs Abdomen: Soft, No tenderness Extremities: No cyanosis, Other (S/P 3rd digit amputation of the right foot) Skin: Other (right foot surgical wound) Labs Labs: Laboratory Tests Test 08/25/21 11:33 08/25/21 17:32 08/25/21 20:48 Glucose (Fingerstick) 198 mg/dL (70-99) 264 mg/dL (70-99) 319 mg/dL (70-99) Assessment and Plan Assessmemt and Plan Problems Medical Problems: (1) Anterior epistaxis Status: Acute (2) Osteomyelitis of right foot Status: Acute Comment Review of Relevant I have reviewed the following items sree (where applicable) has been applied. Medications: Current Medications Medications (Trade) Dose Ordered Sig/Emery Route PRN Reason Start Time Stop Time Status Last Admin Dose Admin Aspirin (Ecotrin) 81 mg DAILYWBKFT PO 08/25/21 14:00 08/26/21 09:32 Justifications for Admission Other Justification WENDIE PAREKH MD Aug 26, 2021 10:33
--- NOTE | 2021-08-26 10:41 | PDOC ---
CARDIOLOGY PROGRESS NOTE SUBJECTIVE: No new events overnight. Patient denies any chest pain or dyspnea. She has no foot pain. OBJECTIVE: Vital Signs/I&O: Vital Signs Date Time Temp Pulse Resp B/P (MAP) Pulse Ox O2 Delivery O2 Flow Rate FiO2 08/26/21 07:57 Room Air 08/26/21 07:00 98.1 80 18 156/92 (113) 92 98.1 08/26/21 05:47 2.0 Objective: GEN.: No apparent distress. Alert and oriented. HEENT: Head is normocephalic, atraumatic NECK: Supple. LUNGS: Clear to auscultation. HEART: RRR, S1, S2 present. Peripheral pulses intact ABDOMEN: Soft, nontender. Positive bowel sounds. EXTREMITIES: Without any cyanosis. She has bounding 2+ popliteal and AT pulses. NEUROLOGIC: Normal speech, normal tone PSYCHIATRIC: Normal affect, normal mood. CURRENT MEDICATIONS: Current Medications Medications (Trade) Dose Ordered Sig/Emery Route PRN Reason Start Time Stop Time Status Last Admin Dose Admin Aspirin (Ecotrin) 81 mg DAILYWBKFT PO 08/25/21 14:00 08/26/21 09:32 DIAGNOSTIC TESTING: Doppler studies reviewed- [facility] Labs: Laboratory Tests Test 08/25/21 11:33 08/25/21 17:32 08/25/21 20:48 Glucose (Fingerstick) 198 mg/dL (70-99) H 264 mg/dL (70-99) H 319 mg/dL (70-99) H ASSESSMENT: 1. Diabetic foot ulcer 2. Trivial PAD 3. HTN PLAN: 1. Continue current medical therapy with asa, statin. 2. Consider outpt aortogram if the wound does not heal but currently she has a normal arterial doppler and normal physical exam so no acute indication for angiogram. Supportive care. Thanks Justicifation of Admission Dx: Justifications for Admission: Justification of Admission Dx: N/A JAYLON HALL MD Aug 26, 2021 10:41
[2021-08-26 11:00] VITALS: BP 161/72
[2021-08-26 15:00] VITALS: BP 136/71
--- NOTE | 2021-08-26 15:55 | PDOC ---
Infectious Disease Note Subjective: Subjective Patient is feeling okay Vital Signs: Vital Signs Vital Signs Date Time Temp Pulse Resp B/P (MAP) Pulse Ox O2 Delivery O2 Flow Rate FiO2 08/26/21 15:00 98.4 76 18 136/71 (92) 98 Room Air 98.4 08/26/21 05:47 2.0 Physical Exam: PHYSICAL EXAM GENERAL: Alert, oriented female, not in distress. HEENT: NAD. NECK: Supple. No JVP, no lymphadenopathy. LUNGS: Clear. HEART: S1, S2, regular. ABDOMEN: Soft, nontender, no organomegaly. EXTREMITIES: No edema, cyanosis. Right foot postoperative dressing in place intact not taken down SKIN: No generalized rash. NEUROLOGIC: The patient is alert, awake, and appropriate. No focal neurologic deficit. Medications: Inpatient Meds: Medications reviewed. Labs: Lab Laboratory Tests Test 08/25/21 17:32 08/25/21 20:48 08/26/21 12:15 Glucose (Fingerstick) 264 mg/dL (70-99) 319 mg/dL (70-99) 216 mg/dL (70-99) Objective: Assessment: 1. Right third toe distal phalanx osteomyelitis. s/p toe amputation 2. Right third toe gangrene, necrotic changes on the toe of the skin also. 3. Diabetes mellitus. 4. Hypertension. 5. Seizure disorder. Plan: Plan of Care Continue antibiotics Continue local wound care as directed When ready to discharge transition to p.o. Zyvox Discussed with at bedside DREW MARTIN MD Aug 26, 2021 15:55
[2021-08-26 19:55] VITALS: BP 149/88
[2021-08-26] MEDS: SIMVASTATIN 10 MG TABLET PO SCH (20:15)
[2021-08-26 22:53] VITALS: BP 161/90
[2021-08-27 03:37] VITALS: BP 150/86
[2021-08-27] MEDS: PIPERACILLIN/TAZOBACTAM 3.375 GM in IV NORMAL SALINE 50ML 50 ML IV SCH ×3 (05:27→17:31)
[2021-08-27 06:59] VITALS: BP 116/69
[2021-08-27] MEDS: PANTOPRAZOLE 40 MG TABLET.DR. PO SCH ×2 (08:45→17:35)
[2021-08-27] MEDS: carBAMazepine 200 MG TABLET PO SCH ×2 (08:45→21:06)
[2021-08-27] MEDS: LACTOBACILLUS RHAMNOSUS GG 1 CAPSULE. PO SCH ×2 (08:45→21:05)
[2021-08-27] MEDS: levETIRAcetam 500 MG TABLET PO SCH ×2 (08:45→21:05)
[2021-08-27] MEDS: ASPIRIN ENTERIC COATED 81 MG TABLET.DR. PO SCH (08:45)
[2021-08-27] MEDS: INSULIN GLARGINE SYRINGE. SQ SCH ×2 (08:50→21:15)
[2021-08-27] MEDS: INSULIN LISPRO 300 UNITS/3 ML VIAL. SQ SCH ×7 (08:51→21:15)
--- NOTE | 2021-08-27 10:31 | PDOC ---
[employer] [facility] PROGRESS NOTE Date of Service DOS: DATE: 08/27/21 TIME: 10:29 Chief Complaint Chief Complaint Right 3rd toe cellulitis - will empirically cover with vancomycin, rocephin, consult ID given reported history of osteomyelitis Right 3rd toe osteomyelitis third toe amputation 08/16/2021- per report. Will assess arterial vascular supply to ascertain adequate healing potential HTN - cont home meds HLD - cont simvastatin DM2 - intolerant of oral diabetic meds. Levemir 70 units nightly and NovoLog 65 units during the day Seizure disorder - she sees Dr. Parker and is on Keppra zonisamide and carbamazepine. Notes last seizure was 3 weeks ago Epistaxis - from nasal swab, local oxymetolazine and pressure resolved in ED Anxiety - on prn lorazepam, counseled on judicious use given history of seizure disorder Insomnia - on Ambien 12.5 mg, counseled on use and neurology follow up given seizure disorder history Headaches - she mentions migraine type, on cyclobenzaprine as well as amitriptyline PVD - aotogram with runoff as outpatient FEN - ADA diet PPX - heparin FULL CODE Dispo - inpatient History of Present Illness History of Present Illness Ms Truong is a 56yo female with PMHx HTN, HLD, DM2, seizure disorder who comes to ED accompanied by her significant other c/o worsening pain, swelling of her right 3rd toe. She was sent to ED by her director auto due to outpatient radiographic imaging concerning for osteomyelitis of the right third toe distal phalanx and per ED staff it was communicated a positive MSSA wound culture as well. Patient seen bedside notes she has been getting nail care through podiatry and has been fighting an infection for over a month now. Failed outpatient antibiotics. She notes a history of diabetes on Levemir 70 units nightly and NovoLog 65 units during the day and has a seizure disorder, reports she sees Dr. Parker and is on Keppra zonisamide and carbamazepine. Her current concerns are some epistaxis after COVID-19 nasal swab and local pressure and oxymetazoline nasal spray have been applied with improvement bedside. Her other concerns are lorazepam Ambien 12.5 mg and cyclobenzaprine as well as amitriptyline be continued while she is hospitalized due to concerns for insomnia and history of headaches as well. 08/22: Labs with NA 133, glucose in upper 200s. Took some time to have her consent for glucose tested. Having some pain currently. Still aching. Arterial Doppler with no acute occlusive disease. 08/23/2021 No acute events overnight. Patient seen examined bedside. MRI completed showing osteomyelitis in the third distal and middle phalanges.. Sugars ranging in the mid 200s. I have changed her insulin glargine to 40 units twice daily. Increased her lispro to 27 units 3 times daily AC. Continue with R ISS and Accu-Cheks before meals and at bedtime. Patient's chart, labs, images were reviewed and discussed with RN 08/24/2021 No acute events overnight. Patient seen examined bedside. Plan for third toe amputation today for osteomyelitis. We will wait for intraoperative wound culture results and adjust antibiotics as necessary. Patient currently n.p.o. except for sips with meds and awaiting surgery. No concerns from nursing. Patient's chart, labs, images were reviewed and discussed with RN 08/25/2021 No acute events overnight. Patient seen examined bedside. Pain is well controlled. Status post third toe amputation. Podiatry evaluated wound and was concerned for dusky changes near surgical incision site. Cardiology consulted for possible angio. Patient's chart, labs, images were reviewed and discussed with RN 08/26/2021 No acute events overnight. Patient seen examined bedside. Pain is well controlled. Needs pharmacy innovation assistant with getting out of bed. PT OT recommended rehab. Cardiology consult recommended aortogram with runoff as an outpatient. [place] are clear dry and intact. Patient's chart, labs, images were reviewed and discussed with RN 08/27/21 No acute events overnight. Patient seen examined bedside. Pain is well controlled. Complaining about her breakfast being cold. Pending PT OT reev aluation to see if she would benefit more from home health. PT OT recurrently recommended rehab. Patient still wants a list of facilities that she can go to. We will wait for social work to return back tomorrow to provide this list. Patient's chart, labs, images were reviewed and discussed with RN Vitals/I&O Vitals/I&O: Vital Signs Date Time Temp Pulse Resp B/P (MAP) Pulse Ox O2 Delivery O2 Flow Rate FiO2 08/27/21 08:00 Room Air 08/27/21 06:59 97.4 78 20 116/69 (85) 94 97.4 08/26/21 20:50 2.0 I & O 08/26/21 08/26/21 08/27/21 15:00 23:00 07:00 Intake Total 520 ml Output Total 300 ml 400 ml Balance 520 ml -300 ml -400 ml Physical Exam Physical Exam: GENERAL: Alert, oriented female, not in distress. HEENT: NAD. NECK: Supple. No JVP, no lymphadenopathy. LUNGS: Clear. HEART: S1, S2, regular. ABDOMEN: Soft, nontender, no organomegaly. EXTREMITIES: No edema, cyanosis. Right foot postoperative dressing in place intact not taken down SKIN: No generalized rash. NEUROLOGIC: The patient is alert, awake, and appropriate. No focal neurologic deficit. General: Alert, Oriented X3, Cooperative, No acute distress Heart: Regular rate, Normal S1, Normal S2, No murmurs Abdomen: Soft, No tenderness Extremities: No cyanosis, Other (S/P 3rd digit amputation of the right foot) Skin: Other (right foot surgical wound) Labs Labs: Laboratory Tests Test 08/26/21 12:15 08/26/21 16:49 08/26/21 21:01 08/27/21 07:51 Glucose (Fingerstick) 216 mg/dL (70-99) 248 mg/dL (70-99) 316 mg/dL (70-99) 207 mg/dL (70-99) Assessment and Plan Assessmemt and Plan Problems Medical Problems: (1) Anterior epistaxis Status: Acute (2) Osteomyelitis of right foot Status: Acute Comment Review of Relevant I have reviewed the following items sree (where applicable) has been applied. Justifications for Admission Other Justification WENDIE PAREKH MD August 27, 2021 10:31
[2021-08-27 11:00] VITALS: BP 126/78
--- NOTE | 2021-08-27 12:30 | PDOC ---
Infectious Disease Note Subjective: Subjective Patient without complaints Vital Signs: Vital Signs Vital Signs Date Time Temp Pulse Resp B/P (MAP) Pulse Ox O2 Delivery O2 Flow Rate FiO2 08/27/21 11:00 97.9 68 18 126/78 (94) 97 Room Air 97.9 08/26/21 20:50 2.0 Physical Exam: PHYSICAL EXAM GENERAL: Alert, oriented female, not in distress. HEENT: NAD. NECK: Supple. No JVP, no lymphadenopathy. LUNGS: Clear. HEART: S1, S2, regular. ABDOMEN: Soft, nontender, no organomegaly. EXTREMITIES: No edema, cyanosis. Right foot postoperative dressing in place intact not taken down SKIN: No generalized rash. NEUROLOGIC: The patient is alert, awake, and appropriate. No focal neurologic deficit. Medications: Inpatient Meds: Medications reviewed. Labs: Lab Laboratory Tests Test 08/26/21 16:49 08/26/21 21:01 08/27/21 07:51 08/27/21 11:24 Glucose (Fingerstick) 248 mg/dL (70-99) 316 mg/dL (70-99) 207 mg/dL (70-99) 242 mg/dL (70-99) Objective: Assessment: 1. Right third toe distal phalanx osteomyelitis. s/p toe amputation 2. Right third toe gangrene, necrotic changes on the toe of the skin also. 3. Diabetes mellitus. 4. Hypertension. 5. Seizure disorder. Plan: Plan of Care Continue antibiotics Continue local wound care as directed When ready to discharge transition to p.o. augmentin Discussed with at bedside DREW MARTIN MD August 27, 2021 12:30
[2021-08-27 15:00] VITALS: BP 138/83
[2021-08-27 19:00] VITALS: BP 136/72
[2021-08-27] MEDS: SIMVASTATIN 10 MG TABLET PO SCH (21:05)
[2021-08-27 23:00] VITALS: BP 143/83
[2021-08-28] MEDS: PIPERACILLIN/TAZOBACTAM 3.375 GM in IV NORMAL SALINE 50ML 50 ML IV SCH ×4 (00:07→17:13)
[2021-08-28 03:00] VITALS: BP 149/93
[2021-08-28 07:00] VITALS: BP 143/81
[2021-08-28] MEDS: PANTOPRAZOLE 40 MG TABLET.DR. PO SCH ×2 (08:41→17:13)
[2021-08-28] MEDS: LACTOBACILLUS RHAMNOSUS GG 1 CAPSULE. PO SCH ×2 (08:42→21:27)
[2021-08-28] MEDS: levETIRAcetam 500 MG TABLET PO SCH ×2 (08:42→21:27)
[2021-08-28] MEDS: carBAMazepine 200 MG TABLET PO SCH ×2 (08:42→21:27)
[2021-08-28] MEDS: ASPIRIN ENTERIC COATED 81 MG TABLET.DR. PO SCH (08:42)
[2021-08-28] MEDS: INSULIN LISPRO 300 UNITS/3 ML VIAL. SQ SCH ×7 (09:03→21:39)
[2021-08-28] MEDS: INSULIN GLARGINE SYRINGE. SQ SCH ×2 (09:03→21:38)
--- NOTE | 2021-08-28 09:46 | PDOC ---
STEFAN ESTEBAN APRN 08/28/21 0946: CARDIO Progress Notes Date and Time Date of Service 08/28/21 Time of Evaluation 0945 Subjective Subjective: No Chest Pain, No shortness of breath, No Palpitations Vitals Vitals Vital Signs Date Time Temp Pulse Resp B/P (MAP) Pulse Ox O2 Delivery O2 Flow Rate FiO2 08/28/21 07:00 98.1 89 18 143/81 (101) 94 Room Air 98.1 Weight Weight [ ] Input and Output Intake and Output Intake and Output 08/28/21 07:00 Intake Total 450 ml Balance 450 ml Intake Oral 450 ml # Voids 4 Laboratory Labs Laboratory Tests Test 08/27/21 11:24 08/27/21 17:04 08/27/21 20:32 08/28/21 08:29 Glucose (Fingerstick) 242 mg/dL (70-99) 206 mg/dL (70-99) 220 mg/dL (70-99) 213 mg/dL (70-99) Microbiology Micro Microbiology 08/24/21 Gram Stain - Final, Resulted 08/24/21 Aerobic and Anaerobic Culture - Preliminary, Resulted Staphylococcus Aureus Enterococcus Faecalis 08/21/21 Blood Culture - Final, Complete NO GROWTH AFTER 5 DAYS Physical Exam HEENT: Neck Supple W Full Motion Chest: Symmetric LUNGS: Other (on RA) Heart: S1S2, RRR Abdomen: Soft N/T Extremities: Other (1+ bilateral LE edema. Right foot drsg intact ) Neurology: alert, oriented, follow commands Assessment Assessment 1. S/P 3rd digit amputations of the right foot secondary to osteomyelitis 2. LE PAD: arterial duplex without flow-limiting stenosis bilaterally 3. HTN: controlled 4. HLP 5. DM2: per PCP 6. Hx of seizure with vagal nerve stimulator Recommendations Continue secondary prevention ASA, statin therapy Consider aortogram with runoff as outpatient if wound is non-healing Local wound care Supportive care Plans for rehab upon discharge Justicifation of Admission Dx: Justifications for Admission: Justification of Admission Dx: N/A CHANCE QUINTERO MD 08/28/21 1347: CARDIO Progress Notes Assessment Assessment Patient seen and examined. Agree with BLUEPRINT ENGINEER's assessment and plan. Lower extremity arterial duplex and did not show any critical peripheral artery stenosis Continue current management per podiatry team We will consider aortogram for more definitive evaluation if patient has problems with wound healing STEFAN ESTEBAN APRN August 28, 2021 09:46 CHANCE QUINTERO MD August 28, 2021 13:47
[2021-08-28 11:00] VITALS: BP 133/74
--- NOTE | 2021-08-28 12:06 | PDOC ---
Infectious Disease Note Subjective: Subjective Patient without complaints Vital Signs: Vital Signs Vital Signs Date Time Temp Pulse Resp B/P (MAP) Pulse Ox O2 Delivery O2 Flow Rate FiO2 08/28/21 11:00 97.8 91 16 133/74 (93) 90 Room Air 97.8 Physical Exam: PHYSICAL EXAM GENERAL: Alert, oriented female, not in distress. HEENT: NAD. NECK: Supple. No JVP, no lymphadenopathy. LUNGS: Clear. HEART: S1, S2, regular. ABDOMEN: Soft, nontender, no organomegaly. EXTREMITIES: No edema, cyanosis. Right foot postoperative dressing in place intact not taken down SKIN: No generalized rash. NEUROLOGIC: The patient is alert, awake, and appropriate. No focal neurologic deficit. Medications: Inpatient Meds: Medications reviewed. Labs: Lab Laboratory Tests Test 08/27/21 17:04 08/27/21 20:32 08/28/21 08:29 08/28/21 11:38 Glucose (Fingerstick) 206 mg/dL (70-99) 220 mg/dL (70-99) 213 mg/dL (70-99) 219 mg/dL (70-99) Objective: Assessment: 1. Right third toe distal phalanx osteomyelitis. s/p toe amputation 2. Right third toe gangrene, necrotic changes on the toe of the skin also. 3. Diabetes mellitus. 4. Hypertension. 5. Seizure disorder. Plan: Plan of Care Continue antibiotics Continue local wound care as directed When ready to discharge transition to p.o. augmentin for 2 weeks DREW MARTIN MD August 28, 2021 12:06
--- NOTE | 2021-08-28 14:19 | PDOC ---
[employer] PROGRESS NOTE Date of Service DOS: DATE: 08/28/21 TIME: 14:18 Chief Complaint Chief Complaint Right 3rd toe cellulitis - will empirically cover with vancomycin, rocephin, consult ID given reported history of osteomyelitis Right 3rd toe osteomyelitis third toe amputation 08/16/2021- per report. Will assess arterial vascular supply to ascertain adequate healing potential HTN - cont home meds HLD - cont simvastatin DM2 - intolerant of oral diabetic meds. Levemir 70 units nightly and NovoLog 65 units during the day Seizure disorder - she sees Dr. Parker and is on Keppra zonisamide and carbamazepine. Notes last seizure was 3 weeks ago Epistaxis - from nasal swab, local oxymetolazine and pressure resolved in ED Anxiety - on prn lorazepam, counseled on judicious use given history of seizure disorder Insomnia - on Ambien 12.5 mg, counseled on use and neurology follow up given seizure disorder history Headaches - she mentions migraine type, on cyclobenzaprine as well as amitriptyline PVD - aotogram with runoff as outpatient FEN - ADA diet PPX - heparin FULL CODE Dispo - inpatient History of Present Illness History of Present Illness Ms Truong is a 56yo female with PMHx HTN, HLD, DM2, seizure disorder who comes to ED accompanied by her significant other c/o worsening pain, swelling of her right 3rd toe. She was sent to ED by her camera repair technician due to outpatient radiographic imaging concerning for osteomyelitis of the right third toe distal phalanx and per ED staff it was communicated a positive MSSA wound culture as well. Patient seen bedside notes she has been getting nail care through podiatry and has been fighting an infection for over a month now. Failed outpatient antibiotics. She notes a history of diabetes on Levemir 70 units nightly and NovoLog 65 units during the day and has a seizure disorder, reports she sees Dr. Parker and is on Keppra zonisamide and carbamazepine. Her current concerns are some epistaxis after COVID-19 nasal swab and local pressure and oxymetazoline nasal spray have been applied with improvement bedside. Her other concerns are lorazepam Ambien 12.5 mg and cyclobenzaprine as well as amitriptyline be continued while she is hospitalized due to concerns for insomnia and history of headaches as well. 08/22: Labs with NA 133, glucose in upper 200s. Took some time to have her consent for glucose tested. Having some pain currently. Still aching. Arterial Doppler with no acute occlusive disease. 08/23/2021 No acute events overnight. Patient seen examined bedside. MRI completed showing osteomyelitis in the third distal and middle phalanges.. Sugars ranging in the mid 200s. I have changed her insulin glargine to 40 units twice daily. Increased her lispro to 27 units 3 times daily AC. Continue with R ISS and Accu-Cheks before meals and at bedtime. Patient's chart, labs, images were reviewed and discussed with RN 08/24/2021 No acute events overnight. Patient seen examined bedside. Plan for third toe amputation today for osteomyelitis. We will wait for intraoperative wound culture results and adjust antibiotics as necessary. Patient currently n.p.o. except for sips with meds and awaiting surgery. No concerns from nursing. Patient's chart, labs, images were reviewed and discussed with RN 08/25/2021 No acute events overnight. Patient seen examined bedside. Pain is well controlled. Status post third toe amputation. Podiatry evaluated wound and was concerned for dusky changes near surgical incision site. Cardiology consulted for possible angio. Patient's chart, labs, images were reviewed and discussed with RN 08/26/2021 No acute events overnight. Patient seen examined bedside. Pain is well controlled. Needs assistant manager retail with getting out of bed. PT OT recommended rehab. Cardiology consult recommended aortogram with runoff as an outpatient. [place] are clear dry and intact. Patient's chart, labs, images were reviewed and discussed with RN 08/27/21 No acute events overnight. Patient seen examined bedside. Pain is well controlled. Complaining about her breakfast being cold. Pending PT OT reev aluation to see if she would benefit more from home health. PT OT recurrently recommended rehab. Patient still wants a list of facilities that she can go to. We will wait for social work to return back tomorrow to provide this list. Patient's chart, labs, images were reviewed and discussed with RN 5/ Patient evaluated examined at bedside. Resting in bed no major complaint. PT recommending rehab placement patient is agreeable to this and will start working on finding a place. Continued antibiotics. switch to p.o. on discharge. Discussed with bedside RN. Discharge in next day or 2. Vitals/I&O Vitals/I&O: Vital Signs Date Time Temp Pulse Resp B/P (MAP) Pulse Ox O2 Delivery O2 Flow Rate FiO2 08/28/21 11:00 97.8 91 16 133/74 (93) 90 Room Air 97.8 I & O 08/27/21 08/27/21 08/28/21 15:00 23:00 07:00 Intake Total 250 ml 200 ml Balance 250 ml 200 ml Physical Exam Physical Exam: GENERAL: Alert, oriented female, not in distress. HEENT: NAD. NECK: Supple. No JVP, no lymphadenopathy. LUNGS: Clear. HEART: S1, S2, regular. ABDOMEN: Soft, nontender, no organomegaly. EXTREMITIES: No edema, cyanosis. Right foot postoperative dressing in place intact not taken down SKIN: No generalized rash. NEUROLOGIC: The patient is alert, awake, and appropriate. No focal neurologic deficit. General: Alert, Oriented X3, Cooperative, No acute distress Heart: Regular rate, Normal S1, Normal S2, No murmurs Abdomen: Soft, No tenderness Extremities: No cyanosis, Other (S/P 3rd digit amputation of the right foot) Skin: Other (right foot surgical wound) Labs Labs: Laboratory Tests Test 08/27/21 17:04 08/27/21 20:32 08/28/21 08:29 08/28/21 11:38 Glucose (Fingerstick) 206 mg/dL (70-99) 220 mg/dL (70-99) 213 mg/dL (70-99) 219 mg/dL (70-99) Assessment and Plan Assessmemt and Plan Problems Medical Problems: (1) Anterior epistaxis Status: Acute (2) Osteomyelitis of right foot Status: Acute Comment Review of Relevant I have reviewed the following items sree (where applicable) has been applied. Justifications for Admission Other Justification ANDERSON BATRES MD August 28, 2021 14:19
[2021-08-28 15:00] VITALS: BP 149/72
[2021-08-28 19:30] VITALS: BP 133/74
[2021-08-28] MEDS: SIMVASTATIN 10 MG TABLET PO SCH (21:27)
[2021-08-28 23:13] VITALS: BP 167/104
[2021-08-29] MEDS: PIPERACILLIN/TAZOBACTAM 3.375 GM in IV NORMAL SALINE 50ML 50 ML IV SCH ×2 (01:05→06:02)
[2021-08-29 03:00] VITALS: BP 130/81
[2021-08-29 07:00] VITALS: BP 127/71
[2021-08-29] MEDS: INSULIN LISPRO 300 UNITS/3 ML VIAL. SQ SCH ×2 (07:30)
[2021-08-29] MEDS: levETIRAcetam 500 MG TABLET PO SCH (08:51)
[2021-08-29] MEDS: ASPIRIN ENTERIC COATED 81 MG TABLET.DR. PO SCH (08:51)
[2021-08-29] MEDS: LACTOBACILLUS RHAMNOSUS GG 1 CAPSULE. PO SCH (08:51)
[2021-08-29] MEDS: PANTOPRAZOLE 40 MG TABLET.DR. PO SCH (08:51)
[2021-08-29] MEDS: carBAMazepine 200 MG TABLET PO SCH (08:52)
[2021-08-29] MEDS: INSULIN GLARGINE SYRINGE. SQ SCH (08:59)
--- NOTE | 2021-08-29 08:59 | PDOC ---
GENERAL General: Patient seen bedside resting comfortably. She denies pain to right foot. She denies nausea, vomitting, fever, chills, shortness of breath or chest pain Lower extremity exam: Dressing right foot clean, dry, intact right foot. upon removal note status post 3rd toe amputation with skin edges well alligned. Dry eschar to distal 1/2 of the incision with sutures intact. no active drainage. superficial erosion to proximal incision. no cellultis. no calor. no further ischemic changes noted. Weakly palpable pedal pulses. sensation diminished to light touch and sharp dull. VITAL SIGNS Vital Signs/I&O: Vital Signs Date Time Temp Pulse Resp B/P (MAP) Pulse Ox O2 Delivery O2 Flow Rate FiO2 08/29/21 07:00 98.0 83 16 127/71 (89) 92 Room Air 98.0 I & O 08/28/21 08/28/21 08/29/21 15:00 23:00 07:00 Intake Total 300 ml 500 ml 1100 ml Balance 300 ml 500 ml 1100 ml ALLERGIES Allergies: Allergies Coded Allergies Type Severity Reaction Last Updated Verified escitalopram Allergy Intermediate 06/06/15 Yes etodolac Allergy Intermediate 06/06/15 Yes glyburide Allergy Intermediate 06/06/15 Yes metformin Allergy Intermediate 06/06/15 Yes sitagliptin Allergy Intermediate 06/06/15 Yes LAB Lab: Laboratory Tests Test 08/28/21 11:38 08/28/21 16:45 08/28/21 19:50 08/29/21 07:07 Glucose (Fingerstick) 219 mg/dL (70-99) H 247 mg/dL (70-99) H 194 mg/dL (70-99) H 186 mg/dL (70-99) H Test 08/29/21 07:09 Glucose (Fingerstick) 179 mg/dL (70-99) H ASSESSMENT & PLAN A&P 56 year old female status post 3rd toe amputation post op day 5, DM, peripheral neuropathy, PVD -Applied new betadine gauze kerlex bandage and armond bandage -Keep dressing clean, dry, intact until follow up appointment in 1 week in the office. -Cardiology will plan for intervention/angio if delayed or non healing in 2-3 weeks. -Bathroom privileges only in surgical shoe right foot -Elevate right lower extremity -OK for Discharge per podiatry Justifications for Admission Other Justification JENNIFER GALINDO DPM August 29, 2021 08:59
--- NOTE | 2021-08-29 10:26 | SNU/HH DC ---
DISCHARGE ORDERS DISCHARGE INFORMATION: DISCHARGE DATE: August 29, 2021 FINAL DIAGNOSIS Problems Medical Problems: (1) Anterior epistaxis Status: Acute (2) Osteomyelitis of right foot Status: Acute CONDITION ON DISCHARGE: Stable CODE STATUS: Code Status: Full SENIOR LIVING: SNF STAY <30 DAYS: No POST DISCHARGE ORDERS: ACTIVITY ORDERS: Activity as tolerated WEIGHT BEARING STATUS: As tolerated DIET AFTER DISCHARGE: Cardiac FOLLOW-UP: Additional Instructions: Acute Rehab TREATMENT/EQUIPMENT ORDERS: ADAPTIVE EQUIPMENT NEEDED: Walker Physical Therapy For: Evalulation/Treatment Occupational Therapy For: Evaluation/Treatment DISCHARGE MEDICATIONS: Home Meds Active Scripts Linezolid (ZYVOX) 600 Mg Tablet, 600 MG PO BID for osteomyelitis for 7 Days, #14 TAB Prov:WENDIE PAREKH MD 08/25/21 Hydrocodone Bit/Acetaminophen (HYDROCODONE-APAP 5-325 ) 1 Tab Tablet, 1 TAB PO PRN Q6HRS PRN for MODERATE - SEVERE PAIN for 3 Days, #12 TAB Prov:WENDIE PAREKH MD 08/25/21 Reported Medications Gabapentin (GABAPENTIN) 600 Mg Tablet, 300 MG PO PRN for neuropathy pain, TAB 08/22/21 Losartan Potassium (LOSARTAN POTASSIUM) 50 Mg Tablet, 50 MG PO DAILY for HYPERTENSION, TAB 08/22/21 Simvastatin (SIMVASTATIN) 10 Mg Tablet, 10 MG PO HS for FOR CHOLESTEROL, #30 TAB 0 Refills 05/06/15 Levothyroxine Sodium (LEVOTHYROXINE SODIUM) 25 Mcg Tablet, 25 MCG PO DAILYAC for THYROID SUPPLEMENT, #30 TAB 0 Refills 05/06/15 Pantoprazole Sodium (PANTOPRAZOLE SODIUM ) 40 Mg Tablet.dr, 40 MG PO BID, TAB 05/06/15 Carbamazepine (TEGRETOL) 200 Mg Tablet, 400 MG PO BID for 30 Days 05/06/15 Lorazepam (LORAZEPAM) 2 Mg Tablet, 2 MG PO TID, TAB 05/06/15 Insulin Detemir (Levemir Flextouch) 100 Unit/1 Ml Insuln.pen, 1 UNIT SQ, SYR 05/06/15 Levetiracetam (LEVETIRACETAM) 1,000 Mg Tablet, 1000 MG PO BID, TAB 05/06/15 Zolpidem Tartrate (ZOLPIDEM TARTRATE ER) 12.5 Mg Tab.mphase, 12.5 MG PO PRN QHS PRN for INSOMNIA, TAB 0 Refills 05/06/15 Insulin Aspart (NOVOLOG) 100 Unit/1 Ml Cartridge, 100 UNIT SQ, EACH 05/06/15 Discontinued Reported Medications Lisinopril (LISINOPRIL) 10 Mg Tablet, 10 MG PO DAILY for FOR HYPERTENSION, #30 TAB 0 Refills 05/06/15 Pregabalin (LYRICA) 100 Mg Capsule, 1 CAP PO BID, #60 CAP 05/06/15 ANDERSON BATRES MD August 29, 2021 10:26
[2021-08-29] MEDS ORDERED: AMOX1TAB61 PO (10:46)
[2021-08-29] MEDS ORDERED: ASPI-886 PO (10:46)
[2021-08-29 10:56] VITALS: BP 155/94
--- NOTE | 2021-08-29 11:56 | NUR ---
Pt was discharged, IV removed and dc instruction were reviewed with pt w/ RN. pt escorted downstairs via wheelchair with tech Addendum: 08/29/21 at 1420 by TRISTAN FLORES RN RN pt was discharged around 1200. pt's did not come, took pt back to room and waiting for him to arrive. Addendum: 08/29/21 at 1510 by TRISTAN FLORES RN RN pt's finally came to pick her up. pt was wheeled downstairs and escorted to her car
--- NOTE | 2021-08-29 12:14 | PDOC ---
ANH BRODY THERAPY DIRECTOR 08/29/21 1214: CARDIO Progress Notes Date and Time Date of Service 08/29/2021 Time of Evaluation 1200 Subjective Subjective: No Chest Pain, No shortness of breath, No Palpitations Vitals Vitals Vital Signs Date Time Temp Pulse Resp B/P (MAP) Pulse Ox O2 Delivery O2 Flow Rate FiO2 08/29/21 10:56 97.8 90 16 155/94 (114) 94 Room Air 97.8 08/29/21 08:00 2.0 Weight Weight [ ] Input and Output Intake and Output Intake and Output 08/29/21 07:00 Intake Total 1900 ml Balance 1900 ml Intake Oral 1900 ml # Voids 6 # Bowel Movements 2 Laboratory Labs Laboratory Tests Test 08/28/21 16:45 08/28/21 19:50 08/29/21 07:07 08/29/21 07:09 Glucose (Fingerstick) 247 mg/dL (70-99) 194 mg/dL (70-99) 186 mg/dL (70-99) 179 mg/dL (70-99) Test 08/29/21 11:25 Glucose (Fingerstick) 243 mg/dL (70-99) Microbiology Micro Microbiology 08/24/21 Gram Stain - Final, Resulted 08/24/21 Aerobic and Anaerobic Culture - Preliminary, Resulted Staphylococcus Aureus Enterococcus Faecalis 08/21/21 Blood Culture - Final, Complete NO GROWTH AFTER 5 DAYS Physical Exam HEENT: Neck Supple W Full Motion Chest: Symmetric LUNGS: Other (on RA) Heart: S1S2, RRR Abdomen: Soft N/T Extremities: Other (1+ bilateral LE edema. Right foot drsg intact ) Neurology: alert, oriented, follow commands Assessment Assessment 1. S/P 3rd digit amputations of the right foot secondary to osteomyelitis 2. LE PAD: arterial duplex without flow-limiting stenosis bilaterally 3. HTN: controlled 4. HLP 5. DM2: per PCP 6. Hx of seizure with vagal nerve stimulator Recommendations Continue secondary prevention ASA, statin therapy Consider outpt aortogram with runoff as outpatient if wound is non-healing Local wound care Supportive care Plans for rehab upon discharge but pt is wanting to go home Justicifation of Admission Dx: Justifications for Admission: Justification of Admission Dx: N/A CHANCE QUINTERO MD 08/30/21 0606: CARDIO Progress Notes Assessment Assessment Patient seen and examined. Agree with AUDIO DIRECTOR's assessment and plan. Lower extremity arterial duplex and did not show any critical peripheral artery stenosis Continue current management per podiatry team We will consider aortogram for more definitive evaluation if patient has problems with wound healing ANH BRODY APRN August 29, 2021 12:14 CHANCE QUINTERO MD August 30, 2021 06:06
--- NOTE | 2021-08-29 13:52 | PDOC ---
Infectious Disease Note Subjective: Subjective Patient without complaints Vital Signs: Vital Signs Vital Signs Date Time Temp Pulse Resp B/P (MAP) Pulse Ox O2 Delivery O2 Flow Rate FiO2 08/29/21 10:56 97.8 90 16 155/94 (114) 94 Room Air 97.8 08/29/21 08:00 2.0 Physical Exam: PHYSICAL EXAM GENERAL: Alert, oriented female, not in distress. HEENT: NAD. NECK: Supple. No JVP, no lymphadenopathy. LUNGS: Clear. HEART: S1, S2, regular. ABDOMEN: Soft, nontender, no organomegaly. EXTREMITIES: No edema, cyanosis. Right foot postoperative dressing in place intact not taken down SKIN: No generalized rash. NEUROLOGIC: The patient is alert, awake, and appropriate. No focal neurologic deficit. Medications: Inpatient Meds: Medications reviewed. Labs: Lab Laboratory Tests Test 08/28/21 16:45 08/28/21 19:50 08/29/21 07:07 08/29/21 07:09 Glucose (Fingerstick) 247 mg/dL (70-99) 194 mg/dL (70-99) 186 mg/dL (70-99) 179 mg/dL (70-99) Test 08/29/21 11:25 Glucose (Fingerstick) 243 mg/dL (70-99) Objective: Assessment: 1. Right third toe distal phalanx osteomyelitis. s/p toe amputation 2. Right third toe gangrene, necrotic changes on the toe of the skin also. 3. Diabetes mellitus. 4. Hypertension. 5. Seizure disorder. Plan: Plan of Care P.o. Augmentin Continue local wound care as directed Okay to discharge from ID standpoint DREW MARTIN MD August 29, 2021 13:52
--- NOTE | 2021-08-29 21:10 | PDOC3 ---
[facility]-Discharge Summary Date of Admission: Date of Admission: Aug 21, 2021 Date of Discharge: Date of Discharge: August 29, 2021 Admission Diagnosis: Admitting Diagnosis: osteomyelitis Consults: Consults: ID, cardiology, podiatry Hospital Course: Hospital Course: Chief Complaint Right 3rd toe cellulitis - will empirically cover with vancomycin, rocephin, consult ID given reported history of osteomyelitis Right 3rd toe osteomyelitis third toe amputation 08/16/2021- per report. Will assess arterial vascular supply to ascertain adequate healing potential HTN - cont home meds HLD - cont simvastatin DM2 - intolerant of oral diabetic meds. Levemir 70 units nightly and NovoLog 65 units during the day Seizure disorder - she sees Dr. Parker and is on Keppra zonisamide and carbamazepine. Notes last seizure was 3 weeks ago Epistaxis - from nasal swab, local oxymetolazine and pressure resolved in ED Anxiety - on prn lorazepam, counseled on judicious use given history of seizure disorder Insomnia - on Ambien 12.5 mg, counseled on use and neurology follow up given seizure disorder history Headaches - she mentions migraine type, on cyclobenzaprine as well as amitriptyline PVD - aotogram with runoff as outpatient FEN - ADA diet PPX - heparin FULL CODE Dispo - inpatient History of Present Illness History of Present Illness Ms Truong is a 56yo female with PMHx HTN, HLD, DM2, seizure disorder who comes to ED accompanied by her significant other c/o worsening pain, swelling of her right 3rd toe. She was sent to ED by her material attendant due to outpatient radiographic imaging concerning for osteomyelitis of the right third toe distal phalanx and per ED staff it was communicated a positive MSSA wound culture as well. Patient seen bedside notes she has been getting nail care through podiatry and has been fighting an infection for over a month now. Failed outpatient antibiotics. She notes a history of diabetes on Levemir 70 units nightly and NovoLog 65 units during the day and has a seizure disorder, reports she sees Dr. Parker and is on Keppra zonisamide and carbamazepine. Her current concerns are some epistaxis after COVID-19 nasal swab and local pressure and oxymetazoline nasal spray have been applied with improvement bedside. Her other concerns are lorazepam Ambien 12.5 mg and cyclobenzaprine as well as amitriptyline be continued while she is hospitalized due to concerns for insomnia and history of headaches as well. 08/22: Labs with NA 133, glucose in upper 200s. Took some time to have her consent for glucose tested. Having some pain currently. Still aching. Arterial Doppler with no acute occlusive disease. 08/23/2021 No acute events overnight. Patient seen examined bedside. MRI completed sh owing osteomyelitis in the third distal and middle phalanges.. Sugars ranging in the mid 200s. I have changed her insulin glargine to 40 units twice daily. Increased her lispro to 27 units 3 times daily AC. Continue with R ISS and Accu-Cheks before meals and at bedtime. Patient's chart, labs, images were reviewed and discussed with RN 08/24/2021 No acute events overnight. Patient seen examined bedside. Plan for third toe amputation today for osteomyelitis. We will wait for intraoperative wound cultu re results and adjust antibiotics as necessary. Patient currently n.p.o. except for sips with meds and awaiting surgery. No concerns from nursing. Patient's chart, labs, images were reviewed and discussed with RN 08/25/2021 No acute events overnight. Patient seen examined bedside. Pain is well controlled. Status post third toe amputation. Podiatry evaluated wound and was concerned for dusky changes near surgical incision site. Cardiology consulted for possible angio. Patient's chart, labs, images were reviewed and discussed with RN 08/26/2021 No acute events overnight. Patient seen examined bedside. Pain is well controlled. Needs delivery driver assistant with getting out of bed. PT OT recommended rehab. Cardiology consult recommended aortogram with runoff as an outpatient. Dressings are clear dry and intact. Patient's chart, labs, images were reviewed and discussed with RN 08/27/21 No acute events overnight. Patient seen examined bedside. Pain is well controlled. Complaining about her breakfast being cold. Pending PT OT reevaluation to see if she would benefit more from home health. PT OT recurrently recommended rehab. Patient still wants a list of facilities that she can go to. We will wait for social work to return back tomorrow to provide this list. Patient's chart, labs, images were reviewed and discussed with RN 08/28 Patient evaluated examined at bedside. Resting in bed no major complaint. PT recommending rehab placement patient is agreeable to this and will start working on finding a place. Continued antibiotics. switch to p.o. on discharge. Discussed with bedside RN. Discharge in next day or 2. 5 Patient evaluated examined at bedside. She is excepted for rehab but states she was told this morning by podiatry team she was cleared actually discharged home. She would much prefer this. Okay to do this from my point of view. Switch to oral Augmentin. Follow-up with wound care. Discussed with bedside RN. Car Tester recommendations reviewed. Greater than 30 minutes spent on discharge. 22 minutes advance care planning. Disposition: Disposition/Orders: D/C to Home Activity: Activity: Resume previous activity Diet: Diet: Cardiac Medications: Home Meds Active Scripts Amoxicillin/Potassium Clav (AUGMENTIN 875-125 TABLET) 1 Each Tablet, 1 TAB PO BID for infection for 10 Days, #20 TAB 0 Refills Prov:ANDERSON BATRES MD 08/29/21 Aspirin (ASPIRIN EC) 81 Mg Tablet., 81 MG PO DAILYWBKFT for cad for 30 Days, #30 TAB.SR Prov:ANDERSON BATRES MD 08/29/21 Hydrocodone Bit/Acetaminophen (HYDROCODONE-APAP 5-325 ) 1 Tab Tablet, 1 TAB PO PRN Q6HRS PRN for MODERATE - SEVERE PAIN for 3 Days, #12 TAB Prov:WENDIE PAREKH MD 08/25/21 Reported Medications Gabapentin (GABAPENTIN) 600 Mg Tablet, 300 MG PO PRN for neuropathy pain, TAB 08/22/21 Losartan Potassium (LOSARTAN POTASSIUM) 50 Mg Tablet, 50 MG PO DAILY for HYPERTENSION, TAB 08/22/21 Simvastatin (SIMVASTATIN) 10 Mg Tablet, 10 MG PO HS for FOR CHOLESTEROL, #30 TAB 0 Refills 05/06/15 Levothyroxine Sodium (LEVOTHYROXINE SODIUM) 25 Mcg Tablet, 25 MCG PO DAILYAC for THYROID SUPPLEMENT, #30 TAB 0 Refills 05/06/15 Pantoprazole Sodium (PANTOPRAZOLE SODIUM ) 40 Mg Tablet., 40 MG PO BID, TAB 05/06/15 Carbamazepine (TEGRETOL) 200 Mg Tablet, 400 MG PO BID for 30 Days 05/06/15 Lorazepam (LORAZEPAM) 2 Mg Tablet, 2 MG PO TID, TAB 05/06/15 Insulin Detemir (Levemir Flextouch) 100 Unit/1 Ml Insuln.pen, 1 UNIT SQ, SYR 05/06/15 Levetiracetam (LEVETIRACETAM) 1,000 Mg Tablet, 1000 MG PO BID, TAB 05/06/15 Zolpidem Tartrate (ZOLPIDEM TARTRATE ER) 12.5 Mg Tab.mphase, 12.5 MG PO PRN QHS PRN for INSOMNIA, TAB 0 Refills 05/06/15 Insulin Aspart (NOVOLOG) 100 Unit/1 Ml Cartridge, 100 UNIT SQ, EACH 05/06/15 Discontinued Reported Medications Lisinopril (LISINOPRIL) 10 Mg Tablet, 10 MG PO DAILY for FOR HYPERTENSION, #30 TAB 0 Refills 05/06/15 Pregabalin (LYRICA) 100 Mg Capsule, 1 CAP PO BID, #60 CAP 05/06/15 Scheduled Amoxicillin/Potassium Clav (Augmentin 875-125 Tablet), 1 TAB PO BID Aspirin (Aspirin Ec), 81 MG PO DAILYWBKFT Carbamazepine (Tegretol), 400 MG PO BID, (Reported) Gabapentin (Gabapentin), 300 MG PO PRN, (Reported) Levetiracetam (Levetiracetam), 1,000 MG PO BID, (Reported) Levothyroxine Sodium (Levothyroxine Sodium), 25 MCG PO DAILYAC, (Reported) Lorazepam (Lorazepam), 2 MG PO TID, (Reported) Losartan Potassium (Losartan Potassium), 50 MG PO DAILY, (Reported) Pantoprazole Sodium (Pantoprazole Sodium ), 40 MG PO BID, (Reported) Simvastatin (Simvastatin), 10 MG PO HS, (Reported) Scheduled PRN Hydrocodone Bit/Acetaminophen (Hydrocodone-Apap 5-325 ), 1 TAB PO PRN Q6HRS PRN for MODERATE - SEVERE PAIN Zolpidem Tartrate (Zolpidem Tartrate Er), 12.5 MG PO PRN QHS PRN for INSOMNIA, (Reported) Miscellaneous Medications Insulin Aspart (Novolog), 100 UNIT SQ, (Reported) Insulin Detemir (Levemir Flextouch), 1 UNIT SQ, (Reported) Discontinued Medications Lisinopril (Lisinopril), 10 MG PO DAILY, (Reported) Pregabalin (Lyrica), 1 CAP PO BID, (Reported) Justicifation of Admission Dx: Justifications for Admission: Justification of Admission Dx: N/A ANDERSON BATRES MD August 29, 2021 21:10
--- NOTE | 2021-08-30 16:21 | PATHOLOGY ---
[facility] Accession Number: [id number] . 01 Material submitted: . toe - RIGHT THIRD TOE . 01 Clinical history: . OSTEOMYELITIS RT TOE R THIRD TOE AMPUTATION . 02 Diagnosis: Right third toe amputation: - Ulceration of distal tip of toe with acute cellulitis and acute osteomyelitis involving distal and middle phalangeal bones. - Proximal amputation bone margin negative for acute osteomyelitis. 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 (JPM:jaylin; 08/30/2021) S 08/30/2021 1457 Local . 02 Electronically signed: . Ad Celis MD, Pathologist NPI- [id number] . 01 Gross description: . The specimen is received in formalin, labeled "Zaida Truong, right third toe". Received is an amputated digit measuring 5.6 cm from anterior to posterior, 2.3 cm from inferior to superior, and 2.0 cm from medial to lateral. The skin and soft tissue margin appears padilla-pink and viable. The ariana margin is smooth, firm, glistening and concave, consistent with disarticulation. The epidermal surface displays a 0.6 x 0.5 cm, well demarcated, circular, padilla-white, open, gaping ulcer, located at the distal tip, 2.0 cm from the inferior skin and soft tissue margin, 1.1 cm from the toenail, 3.0 cm from the superior skin and soft tissue margin, and 4.9 cm from the bony margin. The uninvolved epidermis appears padilla-pink, and wrinkled. The nail is present and appears padilla-yellow, firm, and thickened. The bone and soft tissue margin is inked black. A promotions representative full-thickness longitudinal cross-section is submitted from distal to proximal in cassettes A1-A3, following decalcification. An additional section of the distal tip is submitted in cassette A4. (DENG; 08/28/2021) DENG/DENG 08/28/2021 1749 Local . 02 Microscopic: . . . 02 Pathologist provided ICD-10: L98.499, L03.031, L85.8, R23.4, M86.171 . 02 CPT . 147675, [id number] Specimen Comment: A courtesy copy of this report has been sent to [phone], [phone] Specimen Comment: [phone], , Specimen Comment: Report sent to , DR SAMPSON, DR WATTS Specimen Comment: / DR HILL Performed at: 01 [facility] [address] [facility] [address], [place] [id number] MD Vj Mann MD Phone: [phone] Performed at: 02 [facility] [address] [place], [place] [id number] MD Ad Celis MD Phone: [phone]
== END 2021-08-29 15:00 | disposition home or self-care (01) | DRG 617 ==
LOC: ER 15:53 → 4 NORTH 17:53
PROVIDERS: ADMIT Internal Medicine; ATTEND Internal Medicine
PROC: 0Y6T0Z0 Detachment at Right 3rd Toe, Complete, Open Approach (ICD-10-PCS; principal; 2021-08-24 12:00)
DX: E11.69 Type 2 diabetes mellitus with other specified complication (principal); E11.52 Type 2 diabetes mellitus with diabetic peripheral angiopathy with gangrene; M86.271 Subacute osteomyelitis, right ankle and foot; L03.031 Cellulitis of right toe; E03.9 Hypothyroidism, unspecified; E11.42 Type 2 diabetes mellitus with diabetic polyneuropathy; E11.621 Type 2 diabetes mellitus with foot ulcer; E11.628 Type 2 diabetes mellitus with other skin complications; E78.5 Hyperlipidemia, unspecified; F41.9 Anxiety disorder, unspecified; G40.909 Epilepsy, unspecified, not intractable, without status epilepticus; Z20.822 Contact with and (suspected) exposure to COVID-19; G43.909 Migraine, unspecified, not intractable, without status migrainosus; G47.00 Insomnia, unspecified; I10 Essential (primary) hypertension; L97.509 Non-pressure chronic ulcer of other part of unspecified foot with unspecified severity; R04.0 Epistaxis; Z79.4 Long term (current) use of insulin; Z82.49 Family history of ischemic heart disease and other diseases of the circulatory system; Z83.3 Family history of diabetes mellitus; Z91.19 Patient's noncompliance with other medical treatment and regimen; B95.61 Methicillin susceptible Staphylococcus aureus infection as the cause of diseases classified elsewhere; B96.20 Unspecified Escherichia coli [E. coli] as the cause of diseases classified elsewhere; B95.2 Enterococcus as the cause of diseases classified elsewhere; Z88.8 Allergy status to other drugs, medicaments and biological substances
CPT/HCPCS: 36415; 73630; 73718; 80053; 82962; 83735; 85025; 87040; 87075; 87186; 87426; 88305; 88311; 93925; A4657; A4930; A6223; A6443; A6449; J1100; J1650; J1815; J2250; J2543; J2704; J3010; J3370; J3490; J7040; J7120; 97530-GP; 97535-GO; 99285-25; G0378